=== PATIENT | male | born 1965 | race Hispanic/Latino ===

== ENCOUNTER 2017-12-25 09:20 | Observation (INO) | payer OTHER ==
--- OUTSIDE RECORDS SUMMARY | 2017-12-25 09:22 | XMS REPORT | Clinical Summary ---
:1965 Author Organization [facility] Address [address] [place] [id number] Care Team Providers Name Role Phone Eduardo Knutson MD Primary Care Provider Allergies Active Allergy Reactions Severity Noted Date Comments Morphine Other (See Comments) 02/27/2016 MORPHINE - BREAK OUT IN BLOTCHES Current Medications Prescription Sig. Disp. Refills Start Date End Date Status linagliptin (TRADJENTA) Take 5 mg by mouth Active 5 mg tablet daily. INSULIN DEGLUDEC Inject 110 Units Active (TRESIBA FLEXTOUCH U-200 under the skin SUBQ) daily. HYDROcodone-acetaminophe Take 1 tablet by Active n (NORCO) 7.5-325 mg per mouth every 8 tablet (eight) hours as needed for moderate pain. gabapentin (NEURONTIN) Take 300 mg by mouth Active 300 MG capsule 2 (two) times a day. furosemide (LASIX) 40 MG Take 40 mg by mouth Active tablet 2 (two) times a day. LORAZepam (ATIVAN) 2 MG Take 5 mg by mouth Active tablet daily. lisinopril Take 40 mg by mouth Active (PRINIVIL,ZESTRIL) 40 MG daily. tablet dextroamphetamine-amphet Take 30 mg by mouth Active amine (ADDERALL) 30 mg daily. tablet triamcinolone (KENALOG) Apply 1 application Active 0.1 % cream topically 2 (two) times a day. ondansetron (ZOFRAN) 8 Take 8 mg by mouth 2 Active MG tablet (two) times a day. diphenoxylate-atropine Take 1 tablet by Active (LOMOTIL) 2.5-0.025 mg mouth 2 (two) times per tablet a day. pentoxifylline (TRENTal) Take 400 mg by mouth Active 400 mg CR tablet 2 (two) times a day. betamethasone Apply 1 application Active dipropionate (DIPROLENE) topically 2 (two) 0.05 % cream times a day. citalopram (CeleXA) 20 Take 20 mg by mouth Active MG tablet daily. ketoconazole (NIZORAL) 2 Apply 1 application Active % shampoo topically 2 (two) times a week. Apply to damp skin, lather, leave on 5 minutes, and rinse omeprazole (PriLOSEC) 20 Take 20 mg by mouth Active MG capsule daily. metoprolol tartrate Take 50 mg by mouth Active (LOPRESSOR) 50 MG tablet 2 (two) times a day. Active Problems Not on file Social History Tobacco Use Types Packs/Day Years Used Date Never Smoker Smokeless Tobacco: Never Used Alcohol Use Drinks/Week oz/Week Comments No Sex Assigned at Date Recorded Not on file Last Filed Vital Signs Not on file Plan of Treatment Health Maintenance Due Date Last Done Comments COLONOSCOPY 2013 INFLUENZA VACCINE 04/15/2018 Implants Implanted Type Area Pattern Duplicator Device Expiration Model / Identifier Date Serial / Lot Clip Ligtng Weck Hemoclip Plus W/ Tape Ti Med - [id number] Medical N/A: N/A TELEFLEX MEDICAL [id number] / Implanted: 02/28/2016 (Quantity not on file) Clips for / Internal Use Clip Ligtng Weck Hemoclip Plus W/ Tape Ti Sm - [id number] Medical N/A: N/A WECK CLOSURE [id number] / Implanted: 02/28/2016 (Quantity not on file) Clips for SYSTEMS / Internal Use Results Not on fileafter 12/24/2016 Insurance Payer Benefit Plan / Group Subscriber ID Type Phone Address MEDICARE MEDICARE PART A AND B xxxxxxxxxx Medicare [place], [place] [address]
[2017-12-25] MEDS ORDERED: NITROGLYCERIN 0.4 MG/TAB SL ONE (10:05)
[2017-12-25] MEDS ORDERED: ASPIRIN 81 MG CHEWABLE TABLET ONE (10:05)
[2017-12-25 10:12] LABS: Absolute Lymphocytes (CBC) 1.7 K/uL (0.7-4.9); Absolute Monocytes 0.7 K/uL (0.1-1.3); Absolute Neutrophil 5.5 K/uL (1.8-8.0); Basophils % 0.5 % (0-1.3); Eosinophils % 6.3 % (0-4.4); Hematocrit 29.6 % (39.6-49.0); MCH 29.8 pg (27.0-35.0); Monocytes % 7.9 % (3.3-12.3); RBC Red Blood Cell Count 3.36 M/uL (4.33-5.43)
[2017-12-25 10:17] LABS: Protime INR 1.09
--- NOTE | 2017-12-25 10:19 | RAD REPORT ---
EXAM DESCRIPTION: [facility] Single View12/25/2017 9:46 am CLINICAL HISTORY: Shortness of breath COMPARISON: August 2017 FINDINGS: Moderate bilateral pulmonary opacities are present. There probably are small to moderate b ilateral pleural effusions. The heart is enlarged IMPRESSION: CHF
[2017-12-25 10:28] LABS: Potassium 3.9 mEq/L (3.6-5.0)
[2017-12-25 10:34] LABS: Albumin 3.4 g/dL (3.2-5.5); Bilirubin Direct 0.1 mg/dL (0-0.2); Bilirubin Total 0.7 mg/dL (0.3-1.2); Magnesium 2.2 mg/dL (1.8-2.5); Protein, Total 7.4 g/dL (6.0-8.3)
[2017-12-25] MEDS ORDERED: NA CHLORIDE 0.9% 0 ML IV ONE (10:35)
--- NOTE | 2017-12-25 11:31 | EDPHYS ---
Physician Documentation [facility] Name: Ari Izquierdo Age: 52 yrs Sex: Male : 1965 Arrival Date: 12/25/2017 Time: 09:24 Bed 18 Private MD: ED Physician Mukesh Cooper HPI: 12/25 10:15 This 52 yrs old Male presents to ER via EMS with complaints of Lethargy. wa 10:15 The patient presents with decreased mental status, decreased responsiveness, lethargy. wa Onset: The symptoms/episode began/occurred today, h/o ESRD. due for dialysis today. c/o SOB. Possible causes: unknown. Associated signs and symptoms: Pertinent positives: shortness of breath, Pertinent negatives: abdominal pain, blurred vision, chest pain, combativeness, diarrhea, headache, vomiting. Current symptoms: In the emergency department the patient's symptoms are unchanged from the initial presentation. Patient's baseline: Neuro: alert and fully oriented, Motor: no deficits, Ambulation: walks without assistance. The patient has experienced similar episodes in the past, a few times. The patient has not recently seen a physician. Historical: - Allergies: 09:29 Morphine; ss - PMHx: 09:29 Anemia; CHF; Depression; Diabetes - IDDM; ESRD; Hypertension; psoriasis; TIA; ss - Immunization history:: Adult Immunizations up to date. - Social history:: Smoking status: Patient/guardian denies using tobacco. - Family history:: not pertinent. - Hospitalizations: : No recent hospitalization is reported. ROS: 10:19 Constitutional: Negative for fever, chills, and weight loss, Eyes: Negative for injury, wa pain, redness, and discharge, ENT: Negative for injury, pain, and discharge, Neck: Negative for injury, pain, and swelling, Cardiovascular: Negative for chest pain, palpitations, and edema, Abdomen/GI: Negative for abdominal pain, nausea, vomiting, diarrhea, and constipation, Back: Negative for injury and pain, : Negative for injury, bleeding, discharge, and swelling, MS/Extremity: Negative for injury and deformity, Skin: Negative for injury, rash, and discoloration. 10:19 Respiratory: Positive for shortness of breath, at rest. Negative for cough, hemoptysis, wheezing. 10:19 Neuro: Positive for altered mental status, lethargy and decreased response. 10:19 All other systems are negative. Exam: 10:20 Head/Face: Normocephalic, atraumatic. wa 10:20 Eyes: Pupils equal round and reactive to light, extra-ocular motions intact. Lids and lashes normal. Conjunctiva and sclera are non-icteric and not injected. Cornea within normal limits. Periorbital areas with no swelling, redness, or edema. ENT: Nares patent. No nasal discharge, no septal abnormalities noted. Tympanic membranes are normal and external auditory canals are clear. Oropharynx with no redness, swelling, or masses, exudates, or evidence of obstruction, uvula midline. Mucous membranes moist. Neck: Trachea midline, no thyromegaly or masses palpated, and no cervical lymphadenopathy. Supple, full range of motion without nuchal rigidity, or vertebral point tenderness. No Meningismus. Cardiovascular: Regular rate and rhythm with a normal S1 and S2. No gallops, murmurs, or rubs. Normal PMI, no JVD. No pulse deficits. Abdomen/GI: Soft, non-tender, with normal bowel sounds. No distension or tympany. No guarding or rebound. No evidence of tenderness throughout. Back: No spinal tenderness. No costovertebral tenderness. Full range of motion. Skin: Warm, dry with normal turgor. Normal color with no rashes, no lesions, and no evidence of cellulitis. MS/ Extremity: Pulses equal, no cyanosis. Neurovascular intact. Full, normal range of motion. 10:20 Constitutional: The patient appears in no acute distress, somnolent but appropriate answers when questioned 10:20 Respiratory: the patient does not display signs of respiratory distress, Respirations: normal, Breath sounds: diffuse rhonchi, Respiratory rate: nml 10:20 Neuro: somnolent. answers questions appropriately. weak but moves all extremities bilaterally. Vital Signs: 09:29 BP 192 / 78; Pulse 66; Resp 19; Temp 98.9(O); Pulse Ox 84% on R/A; Weight 77.11 kg; ss Height 5 ft. 7 in. (170.18 cm); Pain 0/10; 09:30 Pulse Ox 98% on 2 lpm NC; ss 10:30 BP 194 / 62; Pulse 62; Resp 14; Pulse Ox 98% on 2 lpm NC; Pain 0/10; ss 10:42 BP 168 / 60; Pulse 63; Resp 16; Pain 0/10; ss 11:05 BP 204 / 69; Pulse 62; Resp 16; Pulse Ox 98% on R/A; ag 11:37 BP 174 / 74; Pulse 61; ss 12:40 BP 185 / 67; Pulse 61; Resp 18; Pulse Ox 97% on 2 lpm NC; Pain 0/10; ss 12:40 BP 172 / 64; Pulse 63; ss 09:29 Body Mass Index 26.63 (77.11 kg, 170.18 cm) ss MDM: 09:30 Patient medically screened. mo 10:22 Differential Diagnosis: CVA, electrolyte abnormality, hypoglycemia, overdose, sepsis, wa CHF. 11:27 Data reviewed: vital signs, nurses notes, lab test result(s), EKG, radiologic studies. wa Special discussion: pt on ativan and norco. suspect somnolence may be due to over-medication. unable to check UDS as pt does not make urine. BP improved. SOB improved with pre-load reduction secondary to nitro admin. kirk admit for emergent dialysis. K within nml limits at this time. 11:30 Test interpretation: by ED physician or midlevel provider: EKG: HR 61. nml axis. wa diffuse T wave flattening. diffuse ST-T changes. elevated BUN/Cr. anemia. mild troponin elevation. elevated BNP. CXR: CHF. . Physician consultation: Jodi Crews MD. 12/25 09:36 Order name: BMP; Complete Time: 10:52 12/25 09:36 Order name: BNP; Complete Time: 10:52 12/25 09:36 Order name: CBC with Diff; Complete Time: 10:52 12/25 09:36 Order name: CPK; Complete Time: 10:53 12/25 09:36 Order name: Hepatic Function; Complete Time: 10:53 12/25 09:36 Order name: Magnesium; Complete Time: 10:53 12/25 09:36 Order name: XRAY CXR (1 view); Complete Time: 10:22 12/25 09:36 Order name: PT-INR; Complete Time: 10:53 12/25 09:36 Order name: Troponin (emerg Dept Use Only); Complete Time: 10:53 12/25 09:36 Order name: EKG; Complete Time: 09:37 mo 12/25 09:36 Order name: Cardiac monitoring; Complete Time: 10:41 mo 12/25 09:36 Order name: EKG - Nurse/Tech; Complete Time: 11:33 12/25 09:36 Order name: IV Saline Lock; Complete Time: 10:41 mo 12/25 09:36 Order name: Labs collected and sent; Complete Time: 10:41 mo 12/25 09:36 Order name: O2 Per Protocol; Complete Time: 10:41 mo 12/25 09:36 Order name: O2 Sat Monitoring; Complete Time: 10:42 mo Administered Medications: 10:39 Drug: Aspirin Chewable Tablet 324 mg Route: PO; ss 11:00 Follow up: Response: No adverse reaction ss 10:40 Drug: Nitroglycerin 0.4 mg Route: Sublingual; ss 11:07 Drug: Nitroglycerin 0.4 mg Route: Sublingual; ss 11:36 Drug: Nitroglycerin 0.4 mg Route: Sublingual; ss 12:00 Follow up: BP decreased minimally for short period of time. dr. Cooper notified. ss 12:52 Drug: Nitroglycerin 0.4 mg Route: Sublingual; ss 13:05 Follow up: blood pressure minimally decreased, Dr. Cooper notified. No further ss intervensions. Dr. Cooper states pt okay to go upstiars, "needs dialysis" Disposition: 12/25/17 11:30 Hospitalization ordered by Jodi Crews for Observation. Preliminary diagnosis are Acute Altered Mental Status, CHF exacerbation, Anemia. - Bed requested for Telemetry/MedSurg (observation). - Status is Observation. ss - Condition is Stable. - Problem is an acute exacerbation. - Symptoms have improved. UTI on Admission? No Signatures: Dispatcher [employer] EDMS Stephany Du RN RN Peggy Lock RN RN Mukesh Cooper MD MD mo Corrections: (The following items were deleted from the chart) 11:33 09:36 Urine Dipstick-Ancillary ordered. mo ss
--- NOTE | 2017-12-25 11:31 | ER ---
Nurse's Notes [facility] Name: Ari Izquierdo Age: 52 yrs Sex: Male : 1965 Arrival Date: 12/25/2017 Time: 09:24 Bed 18 Private MD: Diagnosis: Acute Altered Mental Status;CHF exacerbation;Anemia Presentation: 12/25 09:25 Presenting complaint: EMS states: [facility] staff called EMS because patient is ss lethargic. Pt is awake, but complains of shortness of breath. [facility] reports that patient dialysis session is scheduled for now. Transition of care: patient was not received from another setting of care. Onset of symptoms was December 25, 2017. Care prior to arrival: None. :25 Method Of Arrival: EMS: [facility] ss 09:25 Acuity: RACHANA 2 ss Historical: - Allergies: : Morphine; ss - PMHx: :29 Anemia; CHF; Depression; Diabetes - IDDM; ESRD; Hypertension; psoriasis; TIA; ss - Immunization history:: Adult Immunizations up to date. - Social history:: Smoking status: Patient/guardian denies using tobacco. - Family history:: not pertinent. - Hospitalizations: : No recent hospitalization is reported. Screenin:45 Abuse screen: Denies threats or abuse. Denies injuries from another. Nutritional ss screening: No deficits noted. Tuberculosis screening: Never had TB. Fall Risk Fall in past 12 months (25 points). Secondary diagnosis (15 points) impaired mobility, IV access (20 points). Ambulatory Aid- None/Bed Rest/Nurse Assist (0 pts). Gait- Normal/Bed Rest/Wheelchair (0 pts) Mental Status- Overestimates/Forgets Limitations (15 pts.). Assessment: 09:24 General: Appears comfortable, Behavior is cooperative, drowsy, quiet, Reports fatigue ss for for unknown period of time. [facility] reports since today. Is scheduled to have HD today at this time. . Denies fever, feeling ill, chills. Pain: Denies pain. Neuro: Level of Consciousness is awake, obeys commands, pt is drowsy, but awake and answers questions appropriately. Cardiovascular: Denies chest pain, Heart tones S1 S2 present Capillary refill is sluggish in bilateral fingers Patient's skin is warm and dry. Chest pain is denied. Respiratory: Breath sounds are diminished in left posterior lower lobe and right posterior lower lobe. Respiratory: Reports shortness of breath at rest on exertion Airway is patent Trachea midline Respiratory effort is even, unlabored, Respiratory pattern is regular, symmetrical, Denies cough, pain with respiration, pain with cough, pain with movement. GI: Patient currently denies abdominal pain, diarrhea, nausea, vomiting. : Reports does not produce urine any longer. EENT: Oral mucosa is dry. Derm: Skin with poor turgor Skin is pink, warm \\T\\ dry. normal, redness noted to R hand. [facility] told EMS that this has been normal since patient had dialysis fistula surgery. Musculoskeletal: Amputation of Other: bilateral toes. 10:45 Reassessment: Pt is resting at this time, eyes closed, respirations even and unlabored. 11:30 Reassessment: Patient appears in no apparent distress at this time. repositioned in bed ss with assistance from ED staff. Asked patient if he needs to be cleaned of incontinence, reports no. 13:07 Reassessment: attempted to call report to fourth floor, Crystal nurse will call back in dm5 ten minutes. Charge nurse unavailable to take report at this time. Vital Signs: 09:29 BP 192 / 78; Pulse 66; Resp 19; Temp 98.9(O); Pulse Ox 84% on R/A; Weight 77.11 kg; ss Height 5 ft. 7 in. (170.18 cm); Pain 0/10; 09:30 Pulse Ox 98% on 2 lpm NC; ss 10:30 BP 194 / 62; Pulse 62; Resp 14; Pulse Ox 98% on 2 lpm NC; Pain 0/10; ss 10:42 BP 168 / 60; Pulse 63; Resp 16; Pain 0/10; ss 11:05 BP 204 / 69; Pulse 62; Resp 16; Pulse Ox 98% on R/A; ag 11:37 BP 174 / 74; Pulse 61; ss 12:40 BP 185 / 67; Pulse 61; Resp 18; Pulse Ox 97% on 2 lpm NC; Pain 0/10; ss 12:40 BP 172 / 64; Pulse 63; ss 09:29 Body Mass Index 26.63 (77.11 kg, 170.18 cm) ED Course: 09:24 Patient arrived in ED. ss 09:25 Stephany Du, SYL is Primary Nurse. 09:28 Triage completed. ss 09:29 Arm band placed on right wrist. 09:30 Mukesh Cooper MD is Attending Physician. wa 09:44 X-ray completed. Portable x-ray completed in exam room. [email or web address] 09:45 XRAY CXR (1 view) In Process Unspecified. EDMS 10:00 Inserted saline lock: 22 gauge in left wrist, using aseptic technique. 10:39 Notified ED physician of a critical lab result(s). Creatinine 6.07. hb 10:45 Patient has correct armband on for positive identification. Bed in low position. Call ss light in reach. 11:26 EKG done, by ED staff, reviewed by Mukesh Cooper MD. [facility] 11:29 Jodi Crews MD is Hospitalizing Provider. wi 13:07 No provider procedures requiring assistance completed. Patient admitted, IV remains in dm5 place. Administered Medications: 10:39 Drug: Aspirin Chewable Tablet 324 mg Route: PO; 11:00 Follow up: Response: No adverse reaction 10:40 Drug: Nitroglycerin 0.4 mg Route: Sublingual; 11:07 Drug: Nitroglycerin 0.4 mg Route: Sublingual; ss 11:36 Drug: Nitroglycerin 0.4 mg Route: Sublingual; 12:00 Follow up: BP decreased minimally for short period of time. dr. Cooper notified. 12:52 Drug: Nitroglycerin 0.4 mg Route: Sublingual; 13:05 Follow up: blood pressure minimally decreased, Dr. Cooper notified. No further ss intervensions. Dr. Cooper states pt okay to go upstiars, "needs dialysis" Intake: Outcome: 11:30 Decision to Hospitalize by Provider. wa 13:07 Condition: stable dm5 13:07 Instructed on the need for admit. 13:28 Admitted to Tele accompanied by tech, via stretcher, room 420, report given to joseluis sage with oxygen, with chart. 13:30 Patient left the ED. ss Signatures: Dispatcher [employer] EDTX Arabella Carrera, SYL STREETER dm5 Fanny Conley jr1 Stephany Du RN RN Isadora Herndon Heather, RN RN Corry Zepeda [facility] Mukesh Cooper MD MD wa Corrections: (The following items were deleted from the chart) 09: 09:25 Acuity: RACHANA 3 ss ss 11:07 10:42 BP 194 / 62; Pulse 62bpm; Resp 14bpm; Pulse Ox 98% 2 lpm Nasal Cannula; Pain ss 0/10; ss 15:59 15:59 Response: No adverse reaction ss ss
[2017-12-25] MEDS ORDERED: ONDANSETRON 4 MG (ODT) TAB PO PRN (11:51)
--- NOTE | 2017-12-25 15:30 | EKG ---
Test Date: 2017-12-25 Test Time: 10:55:07 Events Traffic Controller: COLIN MEASUREMENT RESULTS: Intervals: Rate: 61 NV: 132 QRSD: 86 QT: 466 QTc: 469 [place]: P: 19 NV: 132 QRS: 9 T: 87 INTERPRETIVE STATEMENTS: Normal sinus rhythm T wave abnormality, consider lateral ischemia Prolonged QT Abnormal ECG Compared to ECG 09/13/2017 04:00:45 T-wave abnormality now present Possible ischemia now present Prolonged QT interval now present Sinus bradycardia no longer present Ventricular premature complex(es) no longer present Myocardial infarct finding no longer present Electronically Signed On 12-25-17 15:28:54 CDT by Bakari Sahu
[2017-12-25] MEDS ORDERED: D50W 25 GM/50 ML SYRINGE IV PRN (16:07)
[2017-12-25] MEDS ORDERED: GLUCAGON 1 MG/VIAL IM PRN (16:07)
[2017-12-25] MEDS: INSULIN -REGULAR HUMAN 50 UNIT/0.5 ML ML SQ SCH (16:30)
[2017-12-25] MEDS: SEVELAMER CARBONATE 800 MG TABLET PO SCH (16:44)
[2017-12-25] MEDS: cloNIDine HCl 0.1 MG TAB PO SCH ×2 (16:44→22:07)
[2017-12-25] MEDS: FUROSEMIDE 40 MG/4 ML VIAL IV SCH (16:45)
--- NOTE | 2017-12-25 17:12 | P.HP ---
Certification for Inpatient Patient admitted to: Observation With expected LOS: >2 Midnights Patient will require the following post-hospital care: None Practitioner: I am a practitioner with admitting privileges, knowledge of patient current condition, hospital course, and medical plan of care. Services: Services provided to patient in accordance with Admission requirements found in Title 42 Section 412.3 of the Code of Federal Regulations Patient History Date of Service: 12/25/17 Primary Care Provider: None Reason for admission: Lethargic History of Present Illness: 55-year-old male with significant past medical history of hypertension, diabetes , end-stage renal disease on hemodialysis Friday who presented to the hospital from the halfway. Patient nurse at the halfway stated that patient was found to be more lethargic and somnolent when they got him up to go to dialysis. Patient has had some pain medications this morning after which she became lethargic in the progressively worse and thus EMS was called to transfer the patient to the ER. Once in the ER patient was more alert and oriented and was able to answer question. Patient denied having any fever chills nausea vomiting chest pain or shortness of breath at this time. Patient does not recall the episode of being lethargic at the halfway. Patient does however states he has been feeling weak for past couple of days at the halfway. Allergies morphine Allergy (Mild, Verified 09/11/17 15:03) Itching/Hives/Rash Home Medications: Metoprolol Tartrate [Lopressor] 100 mg PO BID 03/27/16 Clonidine HCl [Catapres*] 0.1 mg PO TID 09/11/17 Furosemide [Lasix*] 80 mg PO DAILY 09/11/17 Hydrocodone 7.5/APAP 325 [Haskell 7.5/325 mg*] 1 tab PO Q6HP PRN 09/11/17 Lorazepam [Ativan*] 0.5 mg PO BEDTIME 09/11/17 Pentoxifylline 400 mg PO DAILY 09/11/17 Sevelamer Carbonate [Renvela*] 800 mg PO TID 09/11/17 Acetaminophen 500 mg PO Q4HP PRN 12/25/17 Albuterol Sulfate [Albuterol Sulfate 0.083% Neb Soln] 1 vial NEB Q6HP PRN Amlodipine [Norvasc*] 1 tab PO DAILY 12/25/17 Atorvastatin Calcium [Lipitor*] 1 tab PO BEDTIME 12/25/17 Benzonatate [Tessalon Perle*] 2 cap PO Q8HP PRN 12/25/17 Citalopram [Celexa*] 1 tab PO DAILY 12/25/17 Dextroamphetamine/Amphetamine [Adderall 30 mg Tablet] 30 mg PO DAILY 12/25/17 Diphenox/Atropine [Lomotil*] 1 tab PO Q8HP PRN 12/25/17 Docusate Sodium 1 cap PO BID 12/25/17 Hydrocodone 7.5/APAP 325 [Haskell 7.5/325 mg*] 1 tab PO BID 12/25/17 Insulin Aspart [Novolog Flexpen] 1 unit SQ DAILY 12/25/17 Ipratropium/Albuterol Sulfate [Iprat-Albut 0.5-3(2.5) mg/3 ml] 1 vial NEB Q6HP PRN 12/25/17 Lorazepam [Ativan*] 1 mg PO T,,S 12/25/17 Mag Hydroxide 8% [Milk Of Magnesia*] 30 ml PO DAILY PRN 12/25/17 Melatonin/Pyridoxine HCl (B6) [Melatonin 3 mg Tablet] 6 mg PO BEDTIME 12/25/17 Promethazine HCl 25 mg PO Q6HP PRN 12/25/17 Ramipril [Altace] 10 mg PO BEDTIME 12/25/17 - Past Medical/Surgical History Has patient received pneumonia vaccine in the past: Yes Diabetic: Yes -: Hypertension -: Psoriasis -: Depression -: Diabetes mellitus type 2 -: Anxiety -: History of osteomyelitis with amputations -: End-stage renal disease, nephrology-Dr. Valdes -: Morbid obesity -: Multiple toe amputations -: Previous incision and drainage of multiple abscesses -: Cholecystectomy -: Tonsillectomy Psychosocial/ Personal History: The patient lives by himself. He is currently single. He has been trying to set up going and living in a halfway. - Family History Father -: Heart disease, Diabetes, Kidney disease Notes: of an [place] Mother -: Diabetes Notes: in a car accident - Social History Smoking Status: Never smoker Alcohol use: No CD- Drugs: No Caffeine use: Yes Place [facility]idence[facility] Review of Systems General: As per HPI Physical Examination - Vital Signs Temperature: 97.6 F Blood Pressure: 220/82 Pulse: 68 Respirations: 18 Pulse Ox (%): 98 - Physical Exam General: Alert, In no apparent distress, Other (appeared to be Lethargic. But AAOx3) HEENT: Atraumatic Neck: Supple Respiratory: Normal air movement, Crackles/rales Cardiovascular: Regular rate/rhythm, Normal S1 S2 Gastrointestinal: Normal bowel sounds, Soft and benign, Non-distended, No tenderness Musculoskeletal: No tenderness Integumentary: No rashes Neurological: Normal speech, Normal tone, Abnormal strength Lymphatics: No axilla or inguinal lymphadenopathy - Studies Laboratory Data (last 24 hrs) 12/25/17 10:00: PT 12.9 H, INR 1.09 12/25/17 10:00: WBC 8.4, Hgb 10.0 L, Hct 29.6 L, Plt Count 180 12/25/17 10:00: B-Natriuretic Peptide 1572 H 12/25/17 10:00: Sodium 136, Potassium 3.9, BUN 41 H, Creatinine 6.07 H*, Glucose 104, Magnesium 2.2, Total Bilirubin 0.7, AST 21, ALT 14, Alkaline Phosphatase 78 Assessment and Plan - Problems (Diagnosis) (1) Lethargic Current Visit: Yes Status: Acute Plan: Most likely 2.2 to Azotemia vs Narcotics overdose. Now more alert and oriented. -IV lasix BID -Pt scheduled for HD today -Nephrology consulted. Awaiting Reccs -Lab work and Xray with Volume overload. -Held Haskell and other narcotics at this time. 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 Diabetes mellitus complication status: without complication Qualified Code(s): E11.9 - Type 2 diabetes mellitus without complications; Z79.4 - correction (current) use of insulin; Z79.4 - intermodal truck driver ( current) use of insulin; Z79.4 - intermodal truck driver (current) use of insulin; Z79.4 - intermodal truck driver (current) use of insulin (4) ESRD (end stage renal disease) Onset Date: 09/12/17 Current Visit: No Status: Chronic Plan: On HD and friday -Will restart (5) Hypertension Onset Date: 09/12/17 Current Visit: No Status: Chronic Plan: Restart home medication Qualifiers: Hypertension type: essential hypertension Discharge Plan: [facility] Plan to discharge in: 24 Hours - Advance Directives Does patient have a Living Will: No Does patient have a Durable POA for Healthcare: No - Code Status/Comfort Care Code Status Assessed: Yes Critical Care: No
[2017-12-25] MEDS ORDERED: MANNITOL 25% 12.5 GM/50 ML VIAL IV PRN (18:54)
[2017-12-25] MEDS ORDERED: NA CHLORIDE 0.9% 1,000 ML IV PRN (18:54)
[2017-12-25] MEDS ORDERED: EPOETIN ALFA 10,000 UNIT/ML VIAL IV SCH (19:00)
[2017-12-25] MEDS ORDERED: ALBUMIN HUMAN 25% 50 ML IV SCH (19:00)
[2017-12-25] MEDS ORDERED: HOME MED 1 EA UNK (Metoprolol Tartrate [Lopressor] 100 MG) PO SCH (21:00)
--- NOTE | 2017-12-25 21:39 | P.CNS ---
Date of Consult: 12/25/17 Reason for Consult: ESRD Requesting Physician: Jodi Crews Primary Care Provider: None Chief Complaint: Lethargic History of Present Illness: 55-year-old male with significant past medical history of hypertension, diabetes , end-stage renal disease on hemodialysis Friday who presented to the hospital from the prison. Patient nurse at the prison stated that patient was found to be more lethargic and somnolent when they got him up to go to dialysis. Patient has had some pain medications this morning after which she became lethargic in the progressively worse and thus EMS was called to transfer the patient to the ER. Once in the ER patient was more alert and oriented and was able to answer question. Patient denied having any fever chills nausea vomiting chest pain or shortness of breath at this time. Patient does not recall the episode of being lethargic at the prison. Patient does however states he has been feeling weak for past couple of days at the prison. 10:15 This 52 yrs old Male presents to ER via EMS with complaints of Lethargy. wa 10:15 The patient presents with decreased mental status, decreased responsiveness, lethargy. wa Onset: The symptoms/episode began/occurred today, h/o ESRD. due for dialysis today. c/o SOB. Possible causes: unknown. Associated signs and symptoms: Pertinent positives: shortness of breath, Pertinent negatives: abdominal pain, blurred vision, chest pain, combativeness, diarrhea, headache, vomiting. Current symptoms: In the emergency department the patient's symptoms are unchanged from the initial presentation. Patient's baseline: Neuro: alert and fully oriented, Motor: no deficits, Ambulation: walks without assistance. The patient has experienced similar episodes in the past, a few times. The patient has not recently seen a physician. Allergies morphine Allergy (Mild, Verified 09/11/17 15:03) Itching/Hives/Rash Home medications list reviewed: Yes Home Medications: Metoprolol Tartrate [Lopressor] 100 mg PO BID 03/27/16 Clonidine HCl [Catapres*] 0.1 mg PO TID 09/11/17 Furosemide [Lasix*] 80 mg PO DAILY 09/11/17 Hydrocodone 7.5/APAP 325 [[place] 7.5/325 mg*] 1 tab PO Q6HP PRN 09/11/17 Lorazepam [Ativan*] 0.5 mg PO BEDTIME 09/11/17 Pentoxifylline 400 mg PO DAILY 09/11/17 Sevelamer Carbonate [Renvela*] 800 mg PO TID 09/11/17 Acetaminophen 500 mg PO Q4HP PRN 12/25/17 Albuterol Sulfate [Albuterol Sulfate 0.083% Neb Soln] 1 vial NEB Q6HP PRN Amlodipine [Norvasc*] 1 tab PO DAILY 12/25/17 Atorvastatin Calcium [Lipitor*] 1 tab PO BEDTIME 12/25/17 Benzonatate [Tessalon Perle*] 2 cap PO Q8HP PRN 12/25/17 Citalopram [Celexa*] 1 tab PO DAILY 12/25/17 Dextroamphetamine/Amphetamine [Adderall 30 mg Tablet] 30 mg PO DAILY 12/25/17 Diphenox/Atropine [Lomotil*] 1 tab PO Q8HP PRN 12/25/17 Docusate Sodium 1 cap PO BID 12/25/17 Hydrocodone 7.5/APAP 325 [[place] 7.5/325 mg*] 1 tab PO BID 12/25/17 Insulin Aspart [Novolog Flexpen] 1 unit SQ DAILY 12/25/17 Ipratropium/Albuterol Sulfate [Iprat-Albut 0.5-3(2.5) mg/3 ml] 1 vial NEB Q6HP PRN 12/25/17 Lorazepam [Ativan*] 1 mg PO T,TH,S 12/25/17 Mag Hydroxide 8% [Milk Of Magnesia*] 30 ml PO DAILY PRN 12/25/17 Melatonin/Pyridoxine HCl (B6) [Melatonin 3 mg Tablet] 6 mg PO BEDTIME 12/25/17 Promethazine HCl 25 mg PO Q6HP PRN 12/25/17 Ramipril [Altace] 10 mg PO BEDTIME 12/25/17 - Past Medical/Surgical History Diabetic: Yes -: Hypertension -: Psoriasis -: Depression -: Diabetes mellitus type 2 -: Anxiety -: History of osteomyelitis with amputations -: End-stage renal disease, nephrology-Dr. Valdes -: Morbid obesity -: Multiple toe amputations -: Previous incision and drainage of multiple abscesses -: Cholecystectomy -: Tonsillectomy Psychosocial/ Personal History: The patient lives by himself. He is currently single. He has been trying to set up going and living in a prison. - Family History Father Medical History: Heart disease, Diabetes, Kidney disease Notes: of an [place] Mother Medical History: Diabetes Notes: in a car accident - Social History Smoking Status: Unknown if ever smoked Alcohol use: No CD- Drugs: No Caffeine use: Yes Place of Residence: [facility] Review of Systems 10-point ROS is otherwise unremarkable General: Weakness, Malaise Respiratory: SOB with Excertion Cardiovascular: Edema Physical Examination Temp Pulse Resp BP Pulse Ox 97.6 F 66 18 123/69 98 12/25/17 17:15 12/25/17 18:00 12/25/17 17:15 12/25/17 18:00 12/25/17 17:15 General: In no apparent distress, Oriented x3, Cooperative HEENT: Atraumatic Neck: Supple Respiratory: Crackles/rales Cardiovascular: Regular rate/rhythm, Edema Gastrointestinal: Hypoactive, Soft and benign, Non-distended Musculoskeletal: No clubbing, No contractures Integumentary: No cyanosis, Rash(es) Neurological: Normal speech Laboratory Data (last 24 hrs) 12/25/17 10:00: PT 12.9 H, INR 1.09 12/25/17 10:00: WBC 8.4, Hgb 10.0 L, Hct 29.6 L, Plt Count 180 12/25/17 10:00: B-Natriuretic Peptide 1572 H 12/25/17 10:00: Sodium 136, Potassium 3.9, BUN 41 H, Creatinine 6.07 H*, Glucose 104, Magnesium 2.2, Total Bilirubin 0.7, AST 21, ALT 14, Alkaline Phosphatase 78 Imagings Data: EXAM DESCRIPTION: [facility] Single View12/25/2017 9:46 am CLINICAL HISTORY: Shortness of breath COMPARISON: August 2017 FINDINGS: Moderate bilateral pulmonary opacities are present. There probably are small to moderate bilateral pleural effusions. The heart is enlarged IMPRESSION: CHF Conclusions/Impression: A/ ESRD on HD. A/C Diastolic CHF. HTN with CKD. Anemia in CKD. GENNARO/ Secondary HyperPTH. Psoriasis. P/ Continue current POC and Medications. Arrange for acute HD. Restart home medications. Give Epo. Start Vitamin D and binders. AM labs. Daily weight. Continue current POC and Medications.
[2017-12-25] MEDS: METOPROLOL TAR 50 MG TAB PO SCH (22:08)
[2017-12-26] MEDS: INSULIN -REGULAR HUMAN 50 UNIT/0.5 ML ML SQ SCH ×6 (01:09→21:25)
[2017-12-26 05:45] VITALS: BMI 25.5
[2017-12-26 06:18] LABS: Absolute Lymphocytes (CBC) 1.5 K/uL (0.7-4.9); Absolute Monocytes 0.7 K/uL (0.1-1.3); Absolute Neutrophil 5.7 K/uL (1.8-8.0); Basophils % 0.5 % (0-1.3); Eosinophils % 6.9 % (0-4.4); Hematocrit 31.5 % (39.6-49.0); Lymphocytes % 17.8 % (15.3-44.8); MCV 88.5 fL (80-100); MPV 8.2 fL (7.6-11.3); Monocytes % 8.2 % (3.3-12.3); RBC Red Blood Cell Count 3.56 M/uL (4.33-5.43)
[2017-12-26] MEDS: ACETAMINOPHEN 500 MG TAB PO PRN ×2 (06:44→21:26)
[2017-12-26 07:10] LABS: Albumin 3.1 g/dL (3.2-5.5); Bilirubin Total 0.3 mg/dL (0.3-1.2); Magnesium 2.1 mg/dL (1.8-2.5); Phosphorus 4.1 mg/dL (2.5-4.3); Potassium 4.3 mEq/L (3.6-5.0); Protein, Total 7.2 g/dL (6.0-8.3)
[2017-12-26] MEDS: SEVELAMER CARBONATE 800 MG TABLET PO SCH ×3 (08:33→17:37)
[2017-12-26] MEDS: PENTOXIFYLLINE ER 400 MG TAB PO SCH (08:34)
[2017-12-26] MEDS: cloNIDine HCl 0.1 MG TAB PO SCH ×3 (08:34→21:29)
[2017-12-26] MEDS: FUROSEMIDE 40 MG/4 ML VIAL IV SCH ×2 (08:35→17:37)
[2017-12-26] MEDS: METOPROLOL TAR 50 MG TAB PO SCH ×2 (08:47→21:27)
[2017-12-26] MEDS ORDERED: HYDRALAZINE HCL 20 MG/ML VIAL IV ONE (11:06)
[2017-12-26] MEDS ORDERED: ALBUTEROL 2.5 MG/3 ML NEB SOL NEB PRN ×2 (11:14→15:00)
[2017-12-26] MEDS ORDERED: ACETAMINOPHEN 500 MG TAB PO PRN (11:14)
[2017-12-26] MEDS ORDERED: BENZONATATE 100 MG CAP PO PRN (11:14)
[2017-12-26] MEDS ORDERED: LORAZEPAM 1 MG TABLET PO SCH (12:00)
[2017-12-26] MEDS ORDERED: MAGNESIUM HYDROXIDE 8% 30 ML PO PRN (12:23)
--- NOTE | 2017-12-26 13:01 | ECHO ---
HEIGHT: 5 ft 7 in WEIGHT: 163 lb 3.2 oz DATE OF STUDY: 12/26/[address]: Jodi Crews MD 2-DIMENSIONAL: YES M.MODE: YES DOPPLER: YES COLOR FLOW: YES TDS: NO PORTABLE: NO DEFINITY: NO BUBBLE STUDY: NO DIAGNOSIS: CONGESTIVE HEART FAILURE CARDIAC HISTORY: CATHERIZATION: NO SURGERY: NO PROSTHETIC VALVE: NO PACEMAKER: NO MEASUREMENTS (cm) DIASTOLIC (NORMALS) SYSTOLIC (NORMALS) IVSd 1.2 (0.6-1.2) LA Diam 3.9 (1.9-4.0) LVEF 50% LVIDd 5.4 (3.5-5.7) LVIDs 4.0 (2.0-3.5) %FS 26% LVPWd 1.3 (0.6-1.2) Ao Diam 3.3 (2.0-3.7) 2 DIMENSIONAL ASSESSMENT: RIGHT ATRIUM: NORMAL LEFT ATRIUM: NORMAL RIGHT VENTRICLE: NORMAL LEFT VENTRICLE: LEFT VENTRICULAR HYPERTROPHY TRICUSPID VALVE: NORMAL MITRAL VALVE: NORMAL PULMONIC VALVE: NORMAL AORTIC VALVE: NORMAL PERICARDIAL EFFUSION: NONE AORTIC ROOT: NORMAL LEFT VENTRICULAR WALL MOTION: DECREASED LEFT VENTRICULAR COMPLIANCE. DOPPLER/COLOR FLOW: MILD TRICUSPID REGURGITATION. NORMAL RIGHT VENTRICULAR SYSTOLIC PRESSURE. COMMENTS: MILD TRICUSPID REGURGITATION. NORMAL LEFT VENTRICULAR EJECTION FRACTION. LEFT VENTRICULAR HYPERTROPHY. DECREASED LEFT VENTRICULAR COMPLIANCE. NO EFFUSION. TECHNOLOGIST: Collin MACARIO
--- NOTE | 2017-12-26 13:38 | RAD REPORT ---
EXAM DESCRIPTION: CT - Thorax Wo Con CLINICAL HISTORY: Shortness of breath. COMPARISON: 12/25/2017 FINDINGS: Moderate to large bilateral pleural effusions are noted, slightly greater on the right. Co mpressive atelectasis is suspected in both lung bases. No pericardial fluid seen. No pneumothorax. No axillary, mediastinal or hilar adenopathy. No concerning bony finding. Cholecystectomy clips. All CT scans are performed using dose optimization technique as appropriate and may include automated exposure control or mA/KV adjustment according to patient size. IMPRESSION: Moderate to large bilateral pleural effusions, slightly greater on the right. Compressive atelectasis is present both lung bases.
--- NOTE | 2017-12-26 14:38 | P.CNS ---
Date of Consult: 12/26/17 Reason for Consult: Shortness of breath Primary Care Provider: None Chief Complaint: Shortness of breath History of Present Illness: Patient is 52 years of age has been complaining of progressive dyspnea for the past 3 months was seen by Cardiology a while ago patient has chronic renal failure on dialysis patient her altered mental status abnormal chest x-ray bilateral pleural effusions denies any fever chills cough sputum hemoptysis or chest pain Allergies morphine Allergy (Mild, Verified 09/11/17 15:03) Itching/Hives/Rash Home Medications: Metoprolol Tartrate [Lopressor] 100 mg PO BID 03/27/16 Clonidine HCl [Catapres*] 0.1 mg PO TID 09/11/17 Furosemide [Lasix*] 80 mg PO DAILY 09/11/17 Hydrocodone 7.5/APAP 325 [[place] 7.5/325 mg*] 1 tab PO Q6HP PRN 09/11/17 Lorazepam [Ativan*] 0.5 mg PO BEDTIME 09/11/17 Pentoxifylline 400 mg PO DAILY 09/11/17 Sevelamer Carbonate [Renvela*] 800 mg PO TID 09/11/17 Acetaminophen 500 mg PO Q4HP PRN 12/25/17 Albuterol Sulfate [Albuterol Sulfate 0.083% Neb Soln] 1 vial NEB Q6HP PRN Amlodipine [Norvasc*] 1 tab PO DAILY 12/25/17 Atorvastatin Calcium [Lipitor*] 1 tab PO BEDTIME 12/25/17 Benzonatate [Tessalon Perle*] 2 cap PO Q8HP PRN 12/25/17 Citalopram [Celexa*] 1 tab PO DAILY 12/25/17 Dextroamphetamine/Amphetamine [Adderall 30 mg Tablet] 30 mg PO DAILY 12/25/17 Diphenox/Atropine [Lomotil*] 1 tab PO Q8HP PRN 12/25/17 Docusate Sodium 1 cap PO BID 12/25/17 Hydrocodone 7.5/APAP 325 [[place] 7.5/325 mg*] 1 tab PO BID 12/25/17 Insulin Aspart [Novolog Flexpen] 1 unit SQ DAILY 12/25/17 Ipratropium/Albuterol Sulfate [Iprat-Albut 0.5-3(2.5) mg/3 ml] 1 vial NEB Q6HP PRN 12/25/17 Lorazepam [Ativan*] 1 mg PO T,TH,S 12/25/17 Mag Hydroxide 8% [Milk Of Magnesia*] 30 ml PO DAILY PRN 12/25/17 Melatonin/Pyridoxine HCl (B6) [Melatonin 3 mg Tablet] 6 mg PO BEDTIME 12/25/17 Promethazine HCl 25 mg PO Q6HP PRN 12/25/17 Ramipril [Altace] 10 mg PO BEDTIME 12/25/17 - Past Medical/Surgical History Diabetic: Yes -: Hypertension -: Psoriasis -: Depression -: Diabetes mellitus type 2 -: Anxiety -: History of osteomyelitis with amputations -: End-stage renal disease, nephrology-Dr. Valdes -: Morbid obesity -: Multiple toe amputations -: Previous incision and drainage of multiple abscesses -: Cholecystectomy -: Tonsillectomy Psychosocial/ Personal History: The patient lives by himself. He is currently single. He has been trying to set up going and living in a prison. - Family History Father Medical History: Heart disease, Diabetes, Kidney disease Notes: of an [place] Mother Medical History: Diabetes Notes: in a car accident - Social History Smoking Status: Unknown if ever smoked Alcohol use: No CD- Drugs: No Caffeine use: Yes Place of Residence: [facility] Review of Systems General: Weakness Respiratory: Shortness of Breath Cardiovascular: Edema Physical Examination Temp Pulse Resp BP Pulse Ox 97.8 F 66 18 212/86 H 99 12/26/17 11:22 12/26/17 11:22 12/26/17 11:22 12/26/17 11:22 12/26/17 11:22 General: Alert, Oriented x3 Neck: Supple Respiratory: Diminished, Crackles/rales (Bilateral crackles) Cardiovascular: Regular rate/rhythm, Edema (Bilateral edema) Musculoskeletal: Other (Right arm digits are swollen erythematous with an exam at this rash) - Problems (1) Dyspnea Onset Date: 09/05/17 Current Visit: No Status: Acute Plan: Patient is 52 years of age admitted with worsening dyspnea for the past 3 months he is on hemodialysis end-stage renal disease significant bilateral pleural effusions also had altered mental status doubt sepsis I have ordered ABGs he may well have underlying obstructive sleep apnea echo shows normal left ventricular function with decreased compliance Qualifiers: Dyspnea type: dyspnea on exertion Qualified Code(s): R06.09 - Other forms of dyspnea
[2017-12-26 16:07] LABS: Blood Gas Oxyhemoglobin 91.7 % (94-97); Blood O2 Saturation 95.3 % (92-98.5)
--- NOTE | 2017-12-26 17:01 | P.PN ---
Subjective Date of Service: 12/26/17 Primary Care Provider: None Chief Complaint: Shortness of breath Pt seen and examined at bedside. Chart reviewed. Currently C/o SOB. Had CT chest today. Consistent with BL Pleural Effusion. Pulmonology consulted. Review of Systems General: As per HPI Physical Examination - Vital Signs Temperature: 97.8 F Blood Pressure: 225/56 Pulse: 69 Respirations: 18 Pulse Ox (%): 98 - Physical Exam General: Alert, Oriented x3, Mild distress HEENT: Atraumatic Neck: Supple Respiratory: Normal air movement, Crackles/rales, Expiratory wheezes, Inspiratory wheezes Cardiovascular: Regular rate/rhythm, Normal S1 S2 Gastrointestinal: Normal bowel sounds, No tenderness Musculoskeletal: No tenderness Integumentary: No rashes Neurological: Normal speech, Normal tone, Normal affect Lymphatics: No axilla or inguinal lymphadenopathy - Studies Medications List Reviewed: Yes Assessment & Plan - Problems (Diagnosis) (1) Pleural effusion Current Visit: Yes Status: Acute Plan: Acute Pleural Effusion BL -Pulmonology Consulted. Appreciate reccs -Overnight pulse ox and room Air pulse ox -Lasix BID and HD scheduled. (2) Lethargic Onset Date: 12/26/17 Current Visit: Yes Status: Acute Plan: Most likely 2.2 to Narcotics overdose. Now more alert and oriented. Resolved. -Held [place] and other narcotics at this time. (3) CHF (congestive heart failure) Onset Date: 09/05/17 Current Visit: No Status: Chronic Plan: CHF with volume overload on the Xray. CT with Pleural Effusion -IV lasix BID -HD scheduled for negra again -ECHO with no changes. Qualifiers: Heart failure type: systolic Heart failure chronicity: acute on chronic Qualified Code(s): I50.23 - Acute on chronic systolic (congestive) heart failure (4) Diabetes Onset Date: 09/12/17 Current Visit: No Status: Chronic Plan: ISS Qualifiers: Diabetes mellitus type: type 2 Diabetes mellitus rn long term care insulin use: with [facility] use Diabetes mellitus complication status: without complication Qualified Code(s): E11.9 - Type 2 diabetes mellitus without complications; Z79.4 - [facility]iary (current) use of insulin; Z79.4 - penitentiary ( current) use of insulin; Z79.4 - [facility] [employer] operator (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 (6) Hypertension Onset Date: 09/12/17 Current Visit: No Status: Chronic Plan: Restart home medication Qualifiers: Hypertension type: essential hypertension Discharge Plan: Jail Plan to discharge in: 24 Hours - Code Status/Comfort Care Code Status Assessed: Yes Critical Care: No
--- NOTE | 2017-12-26 19:34 | P.PN ---
Date of Service: 12/26/17 Vital Signs Temp Pulse Resp BP Pulse Ox 97.8 F 69 18 225/56 H 98 12/26/17 17:01 12/26/17 17:37 12/26/17 17:01 12/26/17 17:37 12/26/17 17:01 Medications Acetaminophen (Tylenol -Extra Strength) 500 mg PO Q4HP PRN PRN Reason: [id number] Stop: 01/24/18 11:52 Last Admin: 12/26/17 06:44 Dose: 500 mg Acetaminophen (Tylenol -Extra Strength) 500 mg PO Q4HP PRN PRN Reason: PAIN Stop: 01/25/18 11:15 Albuterol Sulfate (Proventil 0.083% Neb Soln) 2.5 mg NEB Q6HP PRN PRN Reason: SHORTNESS OF BREATH Stop: 01/25/18 15:01 Amlodipine Besylate (Norvasc) 10 mg PO DAILY AKIRA Stop: 01/26/18 09:01 Atorvastatin Calcium (Lipitor) 10 mg PO BEDTIME AKIRA Stop: 01/25/18 21:01 Benzonatate (Tessalon Perle) 200 mg PO Q8HP PRN PRN Reason: COUGH Stop: 01/25/18 11:15 Citalopram Hydrobromide (Celexa) 10 mg PO DAILY AKIRA Stop: 01/26/18 09:01 Clonidine HCl (Catapres) 0.1 mg PO TID AKIRA Stop: 01/24/18 21:01 Last Admin: 12/26/17 14:57 Dose: 0.1 mg Dextrose (Dextrose 50% Syringe) 12.5 gm IV PRN PRN PRN Reason: HYPOGLYCEMIA Stop: 01/24/18 16:08 Docusate Sodium (Colace Cap) 100 mg PO BID AKIRA Stop: 01/25/18 21:01 Epoetin Ignacio (Procrit) 10,000 unit IV EVERY HD AKIRA Stop: 01/24/18 19:01 Furosemide (Lasix) 40 mg IV BIDL AKIRA Stop: 01/24/18 17:01 Last Admin: 12/26/17 17:37 Dose: 40 mg Glucagon (Glucagen) 1 mg IM 1X PRN PRN Reason: HYPOGLYCEMIA Stop: 01/24/18 16:08 Albumin Human (Albumin 25%) 50 mls @ 100 mls/hr IV EVERY HD AKIRA Stop: 01/24/18 19:01 Insulin Human Regular (Novolin -R) 0 unit SQ ACHS AKIRA PRN Reason: Protocol Stop: 01/24/18 16:31 Last Admin: 12/26/17 15:59 Dose: Not Given Lorazepam (Ativan) 0.5 mg PO BEDTIME AKIRA Stop: 01/25/18 21:01 Lorazepam (Ativan) 1 mg PO EVERY HD AKIRA Stop: 01/25/18 12:01 Magnesium Hydroxide (Milk Of Magnesia) 30 ml PO DAILY PRN PRN Reason: CONSTIPATION Stop: 01/25/18 12:24 Mannitol (Mannitol 12.5 Gm/50 Ml Vial) 12.5 gm IV EVERY HD PRN PRN Reason: BP support at hemodialysis Stop: 01/24/18 18:55 Melatonin (Melatonin) 6 mg PO BEDTIME AKIRA Stop: 01/25/18 21:01 Metoprolol Tartrate (Lopressor) 100 mg PO BID AKIRA Stop: 01/24/18 21:01 Last Admin: 12/26/17 08:47 Dose: Not Given Ondansetron HCl (Zofran) 4 mg PO Q6HP PRN PRN Reason: NAUSEA / VOMITING Stop: 01/24/18 11:52 Pentoxifylline (Trental Er) 400 mg PO DAILY AKIRA Stop: 01/25/18 09:01 Last Admin: 12/26/17 08:34 Dose: 400 mg Pyridoxine HCl (Vitamin B-6) 100 mg PO BEDTIME AKIRA Stop: 01/25/18 21:01 Ramipril (Altace) 10 mg PO BEDTIME AKIRA Stop: 01/25/18 21:01 Sevelamer Carbonate (Renvela) 800 mg PO TIDWM AKIRA Stop: 01/24/18 17:01 Last Admin: 12/26/17 17:37 Dose: 800 mg Sodium Chloride (Normal Saline Flush) 10 ml IV BID AKIRA Stop: 01/24/18 21:01 Last Admin: 12/26/17 14:48 Dose: 10 ml Microbiology Results 12/25/17 09:55 Blood - Blood Aerobic Blood Culture - Preliminary No growth in 24 hours. 12/25/17 09:55 Blood - Blood Anaerobic Blood Culture - Preliminary No growth in 24 hours. Assessment/ Plan: Nephrology. Feeling better today. CPS stable without CP or SOB. +ORTEGA No acute events overnight. Vitals, medications, blood work and imaging reviewed in the chart. General: In no apparent distress, Oriented x3, Cooperative HEENT: Atraumatic Neck: Supple Respiratory: Crackles/rales Cardiovascular: Regular rate/rhythm, Edema Gastrointestinal: Hypoactive, Soft and benign, Non-distended Musculoskeletal: No clubbing, No contractures Integumentary: No cyanosis, Rash(es) Neurological: Normal speech Laboratory Data (last 24 hrs) 12/25/17 10:00: PT 12.9 H, INR 1.09 12/25/17 10:00: WBC 8.4, Hgb 10.0 L, Hct 29.6 L, Plt Count 180 12/25/17 10:00: B-Natriuretic Peptide 1572 H 12/25/17 10:00: Sodium 136, Potassium 3.9, BUN 41 H, Creatinine 6.07 H*, Glucose 104, Magnesium 2.2, Total Bilirubin 0.7, AST 21, ALT 14, Alkaline Phosphatase 78 Imagings Data: EXAM DESCRIPTION: RADChest Single View12/25/2017 9:46 am CLINICAL HISTORY: Shortness of breath COMPARISON: August 2017 FINDINGS: Moderate bilateral pulmonary opacities are present. There probably are small to moderate bilateral pleural effusions. The heart is enlarged IMPRESSION: CHF Conclusions/Impression: A/ ESRD on HD. A/C Diastolic CHF. BL pulmonary effusions. HTN with CKD. Anemia in CKD. GENNARO/ Secondary HyperPTH. Psoriasis. P/ Continue current POC and Medications. Arrange for acute HD Friday. Follow up with pulmonary for effusions. Consider thoracentesis as needed. AM labs. Daily weight. Case discussed with Dr. Crews
[2017-12-26] MEDS ORDERED: MELATONIN PO SCH (21:00)
[2017-12-26] MEDS ORDERED: PYRIDOXINE HCL PO SCH (21:00)
[2017-12-26] MEDS: MELATONIN 3 MG TABLET PO SCH (21:26)
[2017-12-26] MEDS: PYRIDOXINE (VIT B6) 50 MG TAB PO SCH (21:26)
[2017-12-26] MEDS: DOCUSATE NA 100 MG CAP PO SCH (21:28)
[2017-12-26] MEDS: RAMIPRIL 5 MG CAP PO SCH (21:28)
[2017-12-26] MEDS: LORAZEPAM 0.5 MG TABLET PO SCH (21:28)
[2017-12-26] MEDS: ATORVASTATIN 10 MG TAB PO SCH (21:29)
[2017-12-27] MEDS ORDERED: HYDRALAZINE HCL 20 MG/ML VIAL IV PRN (04:42)
[2017-12-27 05:11] LABS: Absolute Lymphocytes (CBC) 1.2 K/uL (0.7-4.9); Absolute Monocytes 0.7 K/uL (0.1-1.3); Absolute Neutrophil 6.7 K/uL (1.8-8.0); Basophils % 0.2 % (0-1.3); Eosinophils % 6.9 % (0-4.4); Hematocrit 31.2 % (39.6-49.0); Lymphocytes % 12.8 % (15.3-44.8); MCH 29.7 pg (27.0-35.0); MCV 89.6 fL (80-100); MPV 8.1 fL (7.6-11.3); RBC Red Blood Cell Count 3.48 M/uL (4.33-5.43)
[2017-12-27 05:40] LABS: Albumin 3.3 g/dL (3.2-5.5); Bilirubin Total 0.6 mg/dL (0.3-1.2); Magnesium 2.2 mg/dL (1.8-2.5); Phosphorus 5.4 mg/dL (2.5-4.3); Potassium 4.3 mEq/L (3.6-5.0); Protein, Total 7.2 g/dL (6.0-8.3)
[2017-12-27] MEDS: INSULIN -REGULAR HUMAN 50 UNIT/0.5 ML ML SQ SCH ×4 (07:30→21:00)
[2017-12-27] MEDS: cloNIDine HCl 0.1 MG TAB PO SCH ×3 (09:00→22:10)
[2017-12-27] MEDS ORDERED: AMLODIPINE 10 MG TAB PO SCH (09:00)
[2017-12-27] MEDS: FUROSEMIDE 40 MG/4 ML VIAL IV SCH ×2 (09:00→16:39)
[2017-12-27] MEDS: SEVELAMER CARBONATE 800 MG TABLET PO SCH ×3 (09:00→16:39)
[2017-12-27] MEDS ORDERED: CITALOPRAM 10 MG TABLET PO SCH (09:00)
[2017-12-27] MEDS: METOPROLOL TAR 50 MG TAB PO SCH ×2 (09:01→22:09)
[2017-12-27] MEDS: DOCUSATE NA 100 MG CAP PO SCH ×2 (09:01→22:10)
[2017-12-27] MEDS: PENTOXIFYLLINE ER 400 MG TAB PO SCH (09:01)
[2017-12-27] MEDS: ACETAMINOPHEN 500 MG TAB PO PRN (12:52)
[2017-12-27 13:54] VITALS: O2SAT 98
--- NOTE | 2017-12-27 14:47 | P.SSS ---
Patient History Date of Service: 12/27/17 Primary Care Provider: None Reason for admission: Shortness of breath History of Present Illness: 55-year-old male with significant past medical history of hypertension, diabetes , end-stage renal disease on hemodialysis Friday who presented to the hospital from the intermediate. Patient nurse at the intermediate stated that patient was found to be more lethargic and somnolent when they got him up to go to dialysis. Patient has had some pain medications this morning after which she became lethargic in the progressively worse and thus EMS was called to transfer the patient to the ER. Once in the ER patient was more alert and oriented and was able to answer question. Patient denied having any fever chills nausea vomiting chest pain or shortness of breath at this time. Patient does not recall the episode of being lethargic at the intermediate. Patient does however states he has been feeling weak for past couple of days at the intermediate. Allergies morphine Allergy (Mild, Verified 09/11/17 15:03) Itching/Hives/Rash Home Medications: Metoprolol Tartrate [Lopressor] 100 mg PO BID 03/27/16 Clonidine HCl [Catapres*] 0.1 mg PO TID 09/11/17 Furosemide [Lasix*] 80 mg PO DAILY 09/11/17 Hydrocodone 7.5/APAP 325 [Challenge 7.5/325 mg*] 1 tab PO Q6HP PRN 09/11/17 Lorazepam [Ativan*] 0.5 mg PO BEDTIME 09/11/17 Pentoxifylline 400 mg PO DAILY 09/11/17 Sevelamer Carbonate [Renvela*] 800 mg PO TID 09/11/17 Acetaminophen 500 mg PO Q4HP PRN 12/25/17 Albuterol Sulfate [Albuterol Sulfate 0.083% Neb Soln] 1 vial NEB Q6HP PRN Amlodipine [Norvasc*] 1 tab PO DAILY 12/25/17 Atorvastatin Calcium [Lipitor*] 1 tab PO BEDTIME 12/25/17 Benzonatate [Tessalon Perle*] 2 cap PO Q8HP PRN 12/25/17 Citalopram [Celexa*] 1 tab PO DAILY 12/25/17 Dextroamphetamine/Amphetamine [Adderall 30 mg Tablet] 30 mg PO DAILY 12/25/17 Diphenox/Atropine [Lomotil*] 1 tab PO Q8HP PRN 12/25/17 Docusate Sodium 1 cap PO BID 12/25/17 Hydrocodone 7.5/APAP 325 [Challenge 7.5/325 mg*] 1 tab PO BID 12/25/17 Insulin Aspart [Novolog Flexpen] 1 unit SQ DAILY 12/25/17 Ipratropium/Albuterol Sulfate [Iprat-Albut 0.5-3(2.5) mg/3 ml] 1 vial NEB Q6HP PRN 12/25/17 Lorazepam [Ativan*] 1 mg PO T,TH,S 12/25/17 Mag Hydroxide 8% [Milk Of Magnesia*] 30 ml PO DAILY PRN 12/25/17 Melatonin/Pyridoxine HCl (B6) [Melatonin 3 mg Tablet] 6 mg PO BEDTIME 12/25/17 Promethazine HCl 25 mg PO Q6HP PRN 12/25/17 Ramipril [Altace] 10 mg PO BEDTIME 12/25/17 - Past Medical/Surgical History Has patient received pneumonia vaccine in the past: Yes Diabetic: Yes -: Hypertension -: Psoriasis -: Depression -: Diabetes mellitus type 2 -: Anxiety -: History of osteomyelitis with amputations -: End-stage renal disease, nephrology-Dr. Valdes -: Morbid obesity -: Multiple toe amputations -: Previous incision and drainage of multiple abscesses -: Cholecystectomy -: Tonsillectomy Psychosocial/ Personal History: The patient lives by himself. He is currently single. He has been trying to set up going and living in a intermediate. - Family History Father -: Heart disease, Diabetes, Kidney disease Notes: of an ND Mother -: Diabetes Notes: in a car accident - Social History Smoking Status: Never smoker Alcohol use: No CD- Drugs: No Caffeine use: Yes Place of Residence: [facility] Review of Systems 10-point ROS is otherwise unremarkable Physical Examination - Vital Signs Temperature: 97.0 F Blood Pressure: 203/72 Pulse: 52 Respirations: 18 Pulse Ox (%): 97 - Physical Exam General: Alert, In no apparent distress HEENT: Atraumatic, PERRLA, Mucous membr. moist/pink, EOMI, Sclerae nonicteric Neck: Supple, 2+ carotid pulse no bruit, No LAD, Without JVD or thyroid abnormality Respiratory: Clear to auscultation bilaterally, Normal air movement Cardiovascular: Regular rate/rhythm, Normal S1 S2 Gastrointestinal: Normal bowel sounds, No tenderness Musculoskeletal: No tenderness Integumentary: No rashes Neurological: Normal gait, Normal speech, Normal strength at 5/5 x4 extr, Normal tone, Normal affect Lymphatics: No axilla or inguinal lymphadenopathy - Diagnosis (Problem(s)) (1) Pleural effusion Current Visit: Yes Status: Acute Plan: Acute Pleural Effusion BL. Marked improvement today. Pt to be discharged back to [facility] today. Will continue with lasix and HD at the [facility]. Pt does have oxygen at the intermediate which will be used for him in case of dyspnea. (2) Lethargic Onset Date: 12/26/17 Current Visit: Yes Status: Resolved Plan: Most likely 2.2 to Narcotics overdose. Now more alert and oriented. Resolved. Report given to the nursing monty to Hold Challenge and other narcotics at this time and restart at the lower dose and increase as pt can tolerate it. (3) CHF (congestive heart failure) Onset Date: 09/05/17 Current Visit: No Status: Chronic Plan: CHF with volume overload on the Xray. CT with Pleural Effusion. Improved now. Continue on PO lasix BID and HD. Adjustment made for HD to pull fluid over next week per nephrology reccs. ECHO with no changes. Qualifiers: Heart failure type: systolic Heart failure chronicity: acute on chronic Qualified Code(s): I50.23 - Acute on chronic systolic (congestive) heart failure (4) Diabetes Onset Date: 09/12/17 Current Visit: No Status: Chronic Plan: ISS Qualifiers: Diabetes mellitus type: type 2 Diabetes mellitus longwall foreman insulin use: with longwall foreman use Diabetes mellitus complication status: without complication Qualified Code(s): E11.9 - Type 2 diabetes mellitus without complications; Z79.4 - halfway (current) use of insulin; Z79.4 - halfway ( current) use of insulin; Z79.4 - halfway (current) use of insulin; Z79.4 - halfway (current) use of insulin (5) ESRD (end stage renal disease) Onset Date: 09/12/17 Current Visit: No Status: Chronic Plan: On HD and friday. Resume (6) Hypertension Onset Date: 09/12/17 Current Visit: No Status: Chronic Plan: Restart home medication Qualifiers: Hypertension type: essential hypertension - Disposition Disposition: ROUTINE DISCHARGE Condition: GOOD Diet: Regular Activity: Ad jason
--- NOTE | 2017-12-27 18:33 | PN ---
Date of Progress Note: 12/27/2017 Subjective: The patient is seen at the bedside. No overnight events reported. The patient feels we ll. He said that his breathing status has improved, especially with the oxygen. He is awaiting dial ysis today. Objective: Vital Signs: Blood pressure 203/72, pulse 58, and afebrile. General: No acute distress. Heart: Regular rate and rhythm. No murmurs, rubs, gallops. Lungs: Clear to auscultation bilaterally. Abdomen: Soft, nontender, and nondistended. Positive bowel sounds x4. Extremities: No significant edema. Laboratory Data: CBC reviewed stable. Serum chemistry; sodium 139, potassium 4.3, chloride 103, CO2 of 26, BUN 42, creatinine 5.41, glucose 111, calcium 9.8, phosphorus 5.4. Current Medications: Amlodipine 10 mg daily, clonidine 0.1 t.i.d., Lasix 40 mg IV b.i.d., hydralazin e p.r.n., ramipril 10 mg p.o. at bedtime. Impression: 1.End-stage renal disease, on hemodialysis. 2.Volume overload. 3.Uncontrolled hypertension. 4.Anemia in the setting of chronic kidney disease. Plan: The patient is to receive dialysis today; however, blood pressure remains uncontrolled. I am stopping amlodipine and starting the patient on nifedipine 60 mg daily as the patient has had uncontrolled pressures. Monitor for effect. I have communicated to the dialysis unit to have extra volume removed at dialysis treatments. /ELIZA Voice ID: [id number] Report ID: [id number]
[2017-12-27] MEDS: RAMIPRIL 5 MG CAP PO SCH (22:08)
[2017-12-27 22:09] VITALS: BP 156/65; TEMP 98.4
[2017-12-27] MEDS: PYRIDOXINE (VIT B6) 50 MG TAB PO SCH (22:09)
[2017-12-27] MEDS: MELATONIN 3 MG TABLET PO SCH (22:09)
[2017-12-27] MEDS: LORAZEPAM 0.5 MG TABLET PO SCH (22:10)
[2017-12-27] MEDS: ATORVASTATIN 10 MG TAB PO SCH (22:10)
[2017-12-28] MEDS ORDERED: NIFEDIPINE XL 60 MG TABLET PO SCH (09:00)
== END 2017-12-27 22:41 ==
LOC: ER 09:20 → ERHOLD 11:34 → 4TH 13:25
PROVIDERS: ADMIT Family Medicine; ATTEND Family Medicine
DX: T40.601A Poisoning by unspecified narcotics, accidental (unintentional), initial encounter (principal); E11.22 Type 2 diabetes mellitus with diabetic chronic kidney disease; N18.6 End stage renal disease; I13.2 Hypertensive heart and chronic kidney disease with heart failure and with stage 5 chronic kidney disease, or end stage renal disease; I50.23 Acute on chronic systolic (congestive) heart failure; N25.81 Secondary hyperparathyroidism of renal origin; L40.9 Psoriasis, unspecified; F41.9 Anxiety disorder, unspecified; D63.1 Anemia in chronic kidney disease; E66.01 Morbid (severe) obesity due to excess calories; Z99.2 Dependence on renal dialysis
CPT/HCPCS: 36415 ×3; 71045; 71250; 80048; 80053 ×3; 80061; 80076; 82550; 82805; 82962 ×11; 83036; 83735 ×3; 83880; 84100 ×2; 84484; 85025 ×3; 85610; 87040 ×2; 90935 ×2; 93005; 93306; 94760; 99285; G0378 ×2; J0360 ×2; G0257

== ENCOUNTER 2018-06-05 17:16 | Observation (INO) | payer OTHER ==
--- OUTSIDE RECORDS SUMMARY | 2018-06-05 17:18 | XMS REPORT | Clinical Summary ---
:1965 Author Organization [facility] Address [address] [place] [id number] Care Team Providers Name Role Phone Eduardo [...] Health Maintenance Due Date Last Done Comments COLON CANCER SCREENING 2013 SHINGRIX VACCINE (#1) 2013 INFLUENZA VACCINE 04/15/2018 Implants Implanted Type Area Operational Risk Consultant Device Expiration Model / Identifier Date Serial / Lot Clip Ligtng Weck Hemoclip Plus W/ Tape Ti Med - [id number] Medical N/A: N/A TELEFLEX MEDICAL [id number] / Implanted: 02/28/2016 (Quantity not on file) Clips for / Internal Use Clip Ligtng Weck Hemoclip Plus W/ Tape Ti - [id number] Medical N/A: N/A WECK CLOSURE [id number] / Implanted: 02/28/2016 (Quantity not on file) Clips for SYSTEMS / Internal Use Results Not on fileafter 06/04/2017 Insurance Payer Benefit Plan / Group Subscriber ID Type Phone Address MEDICARE MEDICARE PART A AND B xxxxxxxxxx Medicare [place], [place] [address]
[2018-06-05 18:09] LABS: Absolute Lymphocytes (CBC) 0.9 K/uL (0.7-4.9); Absolute Monocytes 0.5 K/uL (0.1-1.3); Absolute Neutrophil 5.6 K/uL (1.8-8.0); Basophils % 0.7 % (0-1.3); Eosinophils % 1.4 % (0-4.4); Hematocrit 31.2 % (39.6-49.0); Lymphocytes % 12.2 % (15.3-44.8); MCH 26.2 pg (27.0-35.0); MCV 81.2 fL (80-100); MPV 7.8 fL (7.6-11.3); Monocytes % 7.1 % (3.3-12.3); RBC Red Blood Cell Count 3.84 M/uL (4.33-5.43)
--- NOTE | 2018-06-05 18:19 | RAD REPORT ---
EXAM DESCRIPTION: CT - Head Brain Wo Cont - 06/05/2018 6:11 pm CLINICAL HISTORY: [facility]MS Drowsiness COMPARISON: Head Brain Wo Cont dated 06/27/2016; Head Brain Wo Cont dated 03/26/2016 TECHNIQUE: All CT scans are performed using dose optimization technique as appropriate and may inclu de automated exposure control or mA/KV adjustment according to patient size. FINDINGS: No intracranial hemorrhage, hydrocephalus or extra-axial fluid collection.Mild generalized brain atrophy is present with mild periventricular and deep white matter chronic microvascular ische heather changes.No areas of brain edema or evidence of midline shift. The paranasal sinuses and mastoids are clear. The calvarium is intact. Atherosclerosis. IMPRESSION: No acute intracranial abnormality.
[2018-06-05 18:30] LABS: Protime INR 1.25
--- NOTE | 2018-06-05 18:34 | RAD REPORT ---
EXAM DESCRIPTION: RAD - Chest Single View - 06/05/2018 6:20 pm CLINICAL HISTORY: ams Chest pain. COMPARISON: Chest Single View dated 12/25/2017; Chest Single View dated 09/13/2017; Chest Single View dated 09/12/2017; Chest Single View dated 09/11/2017; Thorax Wo Con dated 12/26/2017 FINDINGS: Portable technique limits examination quality. One moderate bilateral pulmonary opacities likely represent pulmonary edema or pneumonia. Bilateral p leural effusions are present, greater on the left. Significant cardiomegaly is seen. IMPRESSION: Mild to moderate CHF versus volume overload pattern.
[2018-06-05 18:35] LABS: ALT/SGPT 14 U/L (12-78); AST/SGOT 15 U/L (15-37); Albumin 2.7 g/dL (3.4-5.0); Alkaline Phosphatase 208 U/L (45-117); BUN Blood Urea Nitrogen 30 mg/dL (7-18); Bicarbonate 33 mmol/L (21-32); Bilirubin Direct 0.2 mg/dL (0-0.2); Bilirubin Total 0.4 mg/dL (0.2-1.0); CKMB Creatine Kinase MB 2.4 ng/mL (0.3-3.6); Glucose Level 99 mg/dL (74-106); Lipase 30 U/L (73-393); Potassium 4.1 mmol/L (3.5-5.1); Protein, Total 8.4 g/dL (6.4-8.2); Sodium Level 140 mmol/L (136-145); Troponin I < 0.02 ng/mL (0.0-0.045)
[2018-06-05 19:07] LABS: Urine Bacteria >50 /HPF (NONE SEEN); Urine Culture Reflex Order REFLEXED
[2018-06-05 19:18] LABS: Urine Blood 2+ (NEG); Urine Glucose NEGATIVE (NEG); Urine Protein 3+ (NEG); Urine Specific Gravity 1.025 (1.005-1.030)
--- NOTE | 2018-06-05 19:26 | ER ---
Nurse's Notes [facility] Name: Ari Izquierdo Age: 53 yrs Sex: Male : 1965 Arrival Date: 06/05/2018 Time: 17:10 Bed 14 Private MD: Diagnosis: Urinary tract infection, site not specified;Other sepsis Presentation: 06/05 17:16 Presenting complaint: EMS states: [facility] reports HR 40s and altered mental status hb since this morning. On scene pt lethargic, slow to respond but answering questions appropriately, reported not feeling well for several days. Denies pain. HD T-Th-Sat. Transition of care: patient was not received from another setting of care. Onset of symptoms was June 05, 2018. Risk Assessment: Do you want to hurt yourself or someone else? Patient reports no desire to harm self or others. Note BP 180/90, HR 57, SpO2 93% on RA, BGL 160. Care prior to arrival: None. 17:16 Method Of Arrival: EMS: [facility] hb 17:16 Acuity: RACHANA 2 hb 17:30 Initial Sepsis Screen: Does the patient meet any 2 criteria? No. Patient's initial hb sepsis screen is negative. Does the patient have a suspected source of infection? No. Patient's initial sepsis screen is negative. Historical: - Allergies: 17:21 Morphine; hb - Home Meds: 17:21 amlodipine 10 mg tab 1 tab twice a day [Active]; atorvastatin 10 mg Oral tab 1 tab once hb daily [Active]; citalopram 20 mg tab 1 tab once daily [Active]; clonidine HCl 0.1 mg Oral tab 1 tab 3 times per day [Active]; ferrous sulfate 325 mg (65 mg iron) Oral tab 1 tab twice a day [Active]; lorazepam 0.5 mg Oral tab daily [Active]; metoprolol tartrate 100 mg Oral tab 1 tab 2 times per day [Active]; [place] 5-325 mg Oral tab 1 tab every 6 hours [Active]; ramipril 10 mg Oral cap 1 cap once daily [Active]; Renvela 800 mg Oral tab 1 tab 3 times per day [Active]; terazosin 5 mg Oral cap 1 cap twice a day [Active]; Tresiba FlexTouch U-200 200 unit/mL (3 mL) subcutaneous inpn 120 unit daily [Active]; - PMHx: 17:21 Anemia; CHF; Depression; Diabetes - IDDM; ESRD; Hypertension; psoriasis; TIA; hb - Immunization history:: Adult Immunizations up to date. - Social history:: Smoking status: Patient/guardian denies using tobacco. - Ebola Screening: : No symptoms or risks identified at this time. Screenin:22 Abuse screen: Denies threats or abuse. Denies injuries from another. Nutritional hb screening: No deficits noted. Tuberculosis screening: No symptoms or risk factors identified. Fall Risk Total Hamlin Fall Scale indicates High Risk Score (45 or more points). Fall prevention measures have been instituted. Side Rails Up X 2 Frequent Obs/Assessments Occuring As available patient and family educated on Fall Prevention Program and Strategies. Assessment: 17:20 General: Appears ill, Behavior is calm, cooperative. Pain: Denies pain. Neuro: Level of hb Consciousness is obeys commands, lethargic, Oriented to person, place, time, situation, Pupils are PERRLA. Cardiovascular: Heart tones S1 S2 present Capillary refill < 3 seconds Patient's skin is warm and dry. Respiratory: Airway is patent Trachea midline Respiratory effort is even, unlabored, Respiratory pattern is regular, symmetrical, Breath sounds are clear bilaterally. GI: No signs and/or symptoms were reported involving the gastrointestinal system. : No signs and/or symptoms were reported regarding the genitourinary system. EENT: No signs and/or symptoms were reported regarding the EENT system. Derm: Skin is pink, warm \T\ dry. redness and skin flanking to bilateral hands. Musculoskeletal: No signs and/or symptoms reported regarding the musculoskeletal system. 18:25 Reassessment: Patient appears in no apparent distress at this time. No changes from hb previously documented assessment. Patient and/or family updated on plan of care and expected duration. Pain level reassessed. VSS. 19:07 General: Appears in no apparent distress. comfortable, Behavior is calm, cooperative. ao Pain: Denies pain. Neuro: Level of Consciousness is awake, obeys commands, lethargic, Oriented to person, place, time, situation, Pupils are PERRLA. Cardiovascular: Heart tones S1 S2 present Capillary refill < 3 seconds Patient's skin is warm and dry. Respiratory: Airway is patent Respiratory effort is even, unlabored, Respiratory pattern is regular, symmetrical, Breath sounds are clear bilaterally. GI: No signs and/or symptoms were reported involving the gastrointestinal system. : No signs and/or symptoms were reported regarding the genitourinary system. EENT: No signs and/or symptoms were reported regarding the EENT system. Derm: Skin is pink, warm \T\ dry. Musculoskeletal: No signs and/or symptoms reported regarding the musculoskeletal system. Circulation, motion, and sensation intact. Swelling present in right hand. 20:13 Reassessment: Patient appears in no apparent distress at this time. Patient and/or ao family updated on plan of care and expected duration. Pain level reassessed. Patient to be admitted. Waiting on room assignment. Dr Arita had already seing patient. 21:30 Reassessment: Report given to CRIS Nava. Patient going to his room at this time. ao Vital Signs: 17:16 BP 182 / 68; Pulse 54; Resp 14; Temp 98.4(O); Pulse Ox 93% on R/A; Pain 0/10; hb 17:19 Pulse Ox 100% on 2 lpm NC; hb 18:23 BP 165 / 97; Pulse 54; Resp 14; Pulse Ox 100% on 2 lpm NC; hb 19:07 BP 128 / 96; Pulse 56; Resp 16; Pulse Ox 97% on R/A; Pain 0/10; ao 20:13 BP 184 / 64; Pulse 61; Resp 18; Pulse Ox 99% ; Pain 7/10; ao ED Course: 17:10 Patient arrived in ED. hb 17:14 Peggy Lock, SYL is Primary Nurse. hb 17:14 Sandip Argueta PA is PHCP. cp 17:14 Samir Butler MD is Attending Physician. cp 17:18 Triage completed. hb 17:22 Arm band placed on right wrist. hb 17:24 Missed attempt(s): 24 gauge in left forearm. Bleeding controlled, band aid applied, hb catheter tip intact. 17:25 Patient has correct armband on for positive identification. Placed in gown. Bed in low hb position. Call light in reach. Side rails up X2. 17:27 Missed attempt(s): 24 gauge in left forearm. Bleeding controlled, band aid applied, hb catheter tip intact. 17:30 Missed attempt(s): 22 gauge in right antecubital area. Bleeding controlled, band aid hb applied, catheter tip intact. 17:33 EKG done, by imaging tech. reviewed by Sandip SOLIS. sm3 17:36 Missed attempt(s): 24 gauge in left hand. Bleeding controlled, band aid applied, hb catheter tip intact. 18:[address] via stretcher. [id number] 18:09 Head Brain Wo Cont In Process Unspecified. EDMS 18:20 Chest Single View In Process Unspecified. EDMS 18:50 Straight cath inserted, using sterile technique, 16 Fr. Specimen obtained. Returned hb cloudy urine. Patient tolerated well. 19:24 Armond Davis MD is Hospitalizing Provider. cp 19:41 Blood Culture Sent. ao 19:41 Blood Culture Sent. ao 21:29 No provider procedures requiring assistance completed. Patient admitted, IV remains in ao place. Administered Medications: 19:37 Drug: Cefepime 1 grams Route: IVPB; Rate: 200 ml/hr; Infused Over: 30 mins; Site: left ao hand; 20:12 Follow up: IV Status: Completed infusion; IV Intake: 100ml ao 20:12 Drug: vancoMYCIN 1 grams Route: IVPB; Infused Over: 2 hrs; Site: left hand; ao 21:32 Follow up: IV Status: Infusion continued upon admission ao Intake: 20:12 IV: 100ml; Total: 100ml. ao Outcome: 19:25 Decision to Hospitalize by Provider. cp 21:30 Admitted to Med/surg accompanied by tech, room 224, with chart, Report called to belkis Nava LVN 21:30 Condition: stable 21:30 Instructed on the need for admit. 21:31 Patient left the ED. ao Signatures: Dispatcher [employer] EDAR Sandip Argueta PA PA cp Ortiz, Alex, RN RN Peggy Smith RN RN hb Montes, Shakira sm3 [place] [id number] Corrections: (The following items were deleted from the chart) 18:25 18:25 Reassessment: Patient appears in no apparent distress at this time. Patient hb and/or family updated on plan of care and expected duration. Pain level reassessed. Patient is alert, oriented x 3, equal unlabored respirations, skin warm/dry/pink. hb
--- NOTE | 2018-06-05 19:26 | EDPHYS ---
Physician Documentation [facility] Name: Ari Izquierdo Age: 53 yrs Sex: Male : 1965 Arrival Date: 06/05/2018 Time: 17:10 Bed 14 Private MD: ED Physician Samir Butler HPI: 06/05 17:20 This 53 yrs old Male presents to ER via EMS with complaints of Altered Mental cp Status. 17:20 The patient's problem is reported as weakness, that is generalized. Onset: The cp symptoms/episode began/occurred this morning. Duration: The episode is continuous. Context: Possible contributing factors include: Patient is a know diabetic. ESRD with dialysis. The patient presents with decreased responsiveness. Associated signs and symptoms: Pertinent negatives: abdominal pain, agitation, chest pain, headache, fever. Current symptoms: In the emergency department the patient's symptoms are unchanged from the initial presentation. Historical: - Allergies: 17:21 Morphine; hb - Home Meds: 17:21 amlodipine 10 mg tab 1 tab twice a day [Active]; atorvastatin 10 mg Oral tab 1 tab once hb daily [Active]; citalopram 20 mg tab 1 tab once daily [Active]; clonidine HCl 0.1 mg Oral tab 1 tab 3 times per day [Active]; ferrous sulfate 325 mg (65 mg iron) Oral tab 1 tab twice a day [Active]; lorazepam 0.5 mg Oral tab daily [Active]; metoprolol tartrate 100 mg Oral tab 1 tab 2 times per day [Active]; [place] 5-325 mg Oral tab 1 tab every 6 hours [Active]; ramipril 10 mg Oral cap 1 cap once daily [Active]; Renvela 800 mg Oral tab 1 tab 3 times per day [Active]; terazosin 5 mg Oral cap 1 cap twice a day [Active]; Tresiba FlexTouch U-200 200 unit/mL (3 mL) subcutaneous inpn 120 unit daily [Active]; - PMHx: 17:21 Anemia; CHF; Depression; Diabetes - IDDM; ESRD; Hypertension; psoriasis; TIA; hb - Immunization history:: Adult Immunizations up to date. - Social history:: Smoking status: Patient/guardian denies using tobacco. - Ebola Screening: : No symptoms or risks identified at this time. ROS: 17:30 Constitutional: Negative for body aches, chills, fever, poor PO intake. cp 17:30 Eyes: Negative for injury, pain, redness, and discharge. cp 17:30 ENT: Negative for drainage from ear(s), ear pain, sore throat, difficulty swallowing, difficulty handling secretions. 17:30 Cardiovascular: Negative for chest pain, edema, palpitations. 17:30 Respiratory: Negative for cough, shortness of breath, wheezing. 17:30 Abdomen/GI: Negative for abdominal pain, nausea, vomiting, and diarrhea, black/tarry stool, rectal bleeding. 17:30 Skin: Negative for cellulitis, rash. 17:30 Neuro: Positive for general weakness, Negative for altered mental status, headache, seizure activity. 17:30 All other systems are negative. Exam: 17:25 ECG was reviewed by the Attending Physician. cp 17:33 Constitutional: The patient appears in no acute distress, alert, awake, cp non-diaphoretic, non-toxic, well developed, well nourished. 17:33 Head/Face: Normocephalic, atraumatic. cp 17:33 Eyes: Periorbital structures: appear normal, Pupils: equal, round, and reactive to light and accomodation, Extraocular movements: intact throughout, Conjunctiva: normal, no exudate, no injection, Sclera: no appreciated abnormality, Lids and lashes: appear normal, bilaterally. 17:33 ENT: External ear(s): are unremarkable, Ear canal(s): are normal, clear, TM's: dullness, bilaterally, Nose: is normal, Mouth: Lips: moist, Oral mucosa: pink and intact, moist, Posterior pharynx: is normal, airway is patent, no erythema, no exudate. 17:33 Neck: ROM/movement: is normal, is supple, without pain, no range of motions limitations, no meningismus, no nuchal rigidity. 17:33 Chest/axilla: Inspection: normal, Palpation: is normal, no crepitus, no tenderness. 17:33 Cardiovascular: Rate: bradycardic, Rhythm: regular, Edema: is not appreciated, JVD: is not appreciated. 17:33 Respiratory: the patient does not display signs of respiratory distress, Respirations: normal, no use of accessory muscles, no retractions, no splinting, no tachypnea, labored breathing, is not present, Breath sounds: are clear throughout, no decreased breath sounds, no stridor, no wheezing. 17:33 Abdomen/GI: Inspection: abdomen appears normal, Bowel sounds: active, all quadrants, Palpation: abdomen is soft and non-tender, in all quadrants. 17:33 Back: pain, is absent, ROM is normal. 17:33 Skin: cellulitis, is not appreciated, no rash present. 17:33 Neuro: Orientation: to person, place \T\ time. Mentation: able to follow commands, slow to respond, Cerebellar function: is grossly normal, Motor: moves all fours, general weakness w/o focal deficits, Sensation: no obvious gross deficits. 18:28 Radiologist reports: no acute findings cp Vital Signs: 17:16 BP 182 / 68; Pulse 54; Resp 14; Temp 98.4(O); Pulse Ox 93% on R/A; Pain 0/10; hb 17:19 Pulse Ox 100% on 2 lpm NC; hb 18:23 BP 165 / 97; Pulse 54; Resp 14; Pulse Ox 100% on 2 lpm NC; hb 19:07 BP 128 / 96; Pulse 56; Resp 16; Pulse Ox 97% on R/A; Pain 0/10; ao 20:13 BP 184 / 64; Pulse 61; Resp 18; Pulse Ox 99% ; Pain 7/10; ao MDM: 17:15 Patient medically screened. cp 19:24 Physician consultation: Armond Davis MD was called at 19:24, was contacted at 19:24, cp regarding admission, to the medical/surgical unit. patient's condition. 19:25 Data reviewed: vital signs, nurses notes, lab test result(s), EKG, radiologic studies, cp CT scan, plain films. 19:25 Test interpretation: by ED physician or midlevel provider: ECG, plain radiologic cp studies. 06/05 17:58 Order name: Basic Metabolic Panel; Complete Time: 18:37 EDMS 06/05 18:37 Interpretation: Normal except: CO2 33; BUN 30; CRE 4.60; GFR 13. cp 06/05 17:58 Order name: Liver (Hepatic) Function; Complete Time: 18:37 EDMS 06/05 18:37 Interpretation: Normal except: ALK 208; TP 8.4; ALB 2.7; GLOB 5.7; A/G 0.5. cp 06/05 17:58 Order name: CKMB Creatine Kinase MB; Complete Time: 18:37 EDIN 06/05 17:59 Order name: Troponin I; Complete Time: 18:37 [facility] 06/05 17:59 Order name: Lipase; Complete Time: 18:37 [facility] 06/05 17:59 Order name: Lactate; Complete Time: 18:25 [facility] 06/05 17:59 Order name: Procalcitonin; Complete Time: 19:01 EDIN 06/05 19:01 Interpretation: Abnormal: Procalcitonin 0.66. cp 06/05 17:59 Order name: CBC with Automated Diff; Complete Time: 18:25 [facility] 06/05 18:25 Interpretation: Normal except: RBC 3.84; HGB 10.1; HCT 31.2; MCV 81.2; MCH 26.2; RDW cp 17.1; MILLA% 78.6; LYM% 12.2. 06/05 17:59 Order name: Protime (+INR); Complete Time: 18:37 [facility] 06/05 17:59 Order name: PTT, Activated Partial Thromb; Complete Time: 18:37 [facility] 06/05 17:59 Order name: Blood Culture [facility] 06/05 17:59 Order name: Blood Culture [facility] 06/05 18:26 Order name: Urine Microscopic Only; Complete Time: 19:23 cp 06/05 19:06 Order name: Urine Dipstick--Ancillary (enter results); Complete Time: 19:23 [facility] 06/05 17:17 Order name: Accucheck; Complete Time: 18:08 cp 06/05 17:17 Order name: Cardiac monitoring; Complete Time: 17:48 cp 06/05 17:17 Order name: EKG - Nurse/Tech; Complete Time: 17:48 cp 06/05 17:17 Order name: IV Saline Lock - Large Bore; Complete Time: 17:48 cp 06/05 17:17 Order name: Labs collected and sent; Complete Time: 18:08 cp 06/05 17:17 Order name: O2 Per Protocol; Complete Time: 17:48 cp 06/05 17:17 Order name: O2 Sat Monitoring; Complete Time: 17:48 cp 06/05 17:52 Order name: EKG Electrocardiogram [facility] 06/05 17:55 Order name: Head Brain Wo Cont; Complete Time: 18:25 EDIN 06/05 17:58 Order name: Chest Single View; Complete Time: 18:37 EDIN 06/05 19:08 Order name: Urine Culture EDIN 06/05 19:35 Order name: CONS Physician Consult EDIN 06/05 18:26 Order name: Cath; Complete Time: 18:50 cp EC:25 Rate is 54 beats/min. Rhythm is regular. DE interval is normal. QRS interval is normal. cp QT interval is prolonged at 490 msec. Interpreted by me. Reviewed by me. Administered Medications: 19:37 Drug: Cefepime 1 grams Route: IVPB; Rate: 200 ml/hr; Infused Over: 30 mins; Site: left ao hand; 20:12 Follow up: IV Status: Completed infusion; IV Intake: 100ml ao 20:12 Drug: vancoMYCIN 1 grams Route: IVPB; Infused Over: 2 hrs; Site: left hand; ao 21:32 Follow up: IV Status: Infusion continued upon admission ao Disposition: 06/05/18 19:25 Hospitalization ordered by Armond Davis for Inpatient Admission. Preliminary diagnosis are Urinary tract infection, site not specified, Other sepsis. - Bed requested for Telemetry/MedSurg (Inpatient). - Status is Inpatient Admission. ao - Condition is Stable. - Problem is new. - Symptoms have improved. UTI on Admission? Yes Addendum: 06/08/2018 18:01 Co-signature as Attending Physician, Samir Butler MD. g s Signatures: Dispatcher [employer] [facility] Jess Gudino RN RN kl Page, Corey, PA PA cp Ortiz, Alex, RN RN ao Baxter, Heather, RN RN hb Starr, Gregory, MD MD Corrections: (The following items were deleted from the chart) 06/05 18:03 17:58 Head Brain Wo Cont ordered. [facility] EDIN 18:03 17:58 EKG Electrocardiogram ordered. [facility] :22 19:25 Hospitalization Ordered by Armond Davis MD for Inpatient Admission. Preliminary diagnosis is Urinary tract infection, site not specified; Other sepsis. Bed requested for Telemetry/MedSurg (Inpatient). Status is Inpatient Admission. Condition is Stable. Problem is new. Symptoms have improved. UTI on Admission? Yes. cp 21:31 20:22 06/05/2018 19:25 Hospitalization Ordered by Armond Davis MD for Inpatient ao Admission. Preliminary diagnosis is Urinary tract infection, site not specified; Other sepsis. Bed requested for Telemetry/MedSurg (Inpatient). Status is Inpatient Admission. Condition is Stable. Problem is new. Symptoms have improved. UTI on Admission? Yes. kl
[2018-06-05] MEDS ORDERED: VANCOMYCIN 1 GM/250 ML BAG ONE (19:36)
[2018-06-05] MEDS ORDERED: CEFEPIME 1 GM/100 ML BAG IV ONE (19:36)
--- NOTE | 2018-06-05 21:07 | P.HP ---
Certification for Inpatient Patient admitted to: Inpatient With expected LOS: >2 Midnights Practitioner: I am a practitioner with admitting privileges, knowledge of patient current condition, hospital course, and medical plan of care. Services: Services provided to patient in accordance with Admission requirements found in Title 42 Section 412.3 of the Code of Federal Regulations Patient History Date of Service: 06/05/18 Reason for admission: Generalize weakness History of Present Illness: Mr. Izquierdo is a 53-year-old gentleman with multiple medical problems including insulin-dependent diabetes mellitus, hypertension, end-stage renal disease on hemodialysis, chronic back pain, who came to ED complaining of progressive weakness starting about 3 or 4 days ago. He denied any fever or chills, he denied also cough, abdominal pain, nausea or vomiting. He states that about 4 days ago he started taking gabapentin as part of his home medication. When he called EMS, they found him bradycardic with heart rate about 40 BPM. EKG in ER shows sinus rhythm, rate 54, PAC's without ST-T abnormality. Lab work shows normal WBC count, but UA was abnormal. Allergies morphine Allergy (Mild, Verified 09/11/17 15:03) Itching/Hives/Rash Home medications list reviewed: Yes Home Medications: Metoprolol Tartrate [Lopressor] 100 mg PO BID 03/27/16 Furosemide [Lasix*] 80 mg PO DAILY 09/11/17 Hydrocodone 7.5/APAP 325 [[place] 7.5/325 mg*] 1 tab PO Q6HP PRN 09/11/17 LORazepam [Ativan*] 0.5 mg PO BEDTIME 09/11/17 Pentoxifylline 400 mg PO DAILY 09/11/17 Sevelamer Carbonate [Renvela*] 800 mg PO TID 09/11/17 cloNIDine HCl [Catapres*] 0.1 mg PO TID 09/11/17 Acetaminophen 500 mg PO Q4HP PRN 12/25/17 Albuterol Sulfate [Albuterol Sulfate 0.083% Neb Soln] 1 vial NEB Q6HP PRN Amlodipine [Norvasc*] 1 tab PO DAILY 12/25/17 Atorvastatin Calcium [Lipitor*] 1 tab PO BEDTIME 12/25/17 Benzonatate [Tessalon Perle*] 2 cap PO Q8HP PRN 12/25/17 Citalopram [Celexa*] 1 tab PO DAILY 12/25/17 Dextroamphetamine/Amphetamine [Adderall 30 mg Tablet] 30 mg PO DAILY 12/25/17 Diphenox/Atropine [Lomotil*] 1 tab PO Q8HP PRN 12/25/17 Docusate Sodium 1 cap PO BID 12/25/17 Hydrocodone 7.5/APAP 325 [[place] 7.5/325 mg*] 1 tab PO BID 12/25/17 Insulin Aspart [Novolog Flexpen] 1 unit SQ DAILY 12/25/17 Ipratropium/Albuterol Sulfate [Iprat-Albut 0.5-3(2.5) mg/3 ml] 1 vial NEB Q6HP PRN 12/25/17 LORazepam [Ativan*] 1 mg PO T,TH,S 12/25/17 Mag Hydroxide 8% [Milk Of Magnesia*] 30 ml PO DAILY PRN 12/25/17 Melatonin/Pyridoxine HCl (B6) [Melatonin 3 mg Tablet] 6 mg PO BEDTIME 12/25/17 Promethazine HCl 25 mg PO Q6HP PRN 12/25/17 Ramipril [Altace] 10 mg PO BEDTIME 12/25/17 - Past Medical/Surgical History Diabetic: Yes -: Hypertension -: Psoriasis -: Depression -: Diabetes mellitus type 2 -: Anxiety -: History of osteomyelitis with amputations -: End-stage renal disease, nephrology-Dr. Valdes -: Morbid obesity -: Chronic back pain -: Multiple toe amputations -: Previous incision and drainage of multiple abscesses -: Cholecystectomy -: Tonsillectomy Psychosocial/ Personal History: The patient lives by himself. He is currently single. He has been trying to set up going and living in a skilled nursing. - Family History Father -: Heart disease, Diabetes, Kidney disease Notes: of an OK Mother -: Diabetes Notes: in a car accident - Social History Smoking Status: Never smoker Alcohol use: No CD- Drugs: No Caffeine use: Yes Place of Residence: Home Review of Systems 10-point ROS is otherwise unremarkable Physical Examination - Physical Exam General: Alert, In no apparent distress HEENT: Atraumatic, PERRLA, Mucous membr. moist/pink, EOMI, Sclerae nonicteric Neck: Supple, 2+ carotid pulse no bruit, No LAD, Without JVD or thyroid abnormality Respiratory: Clear to auscultation bilaterally, Normal air movement Cardiovascular: Normal S1 S2, Irregular heart rate/rhythm Gastrointestinal: Normal bowel sounds, No tenderness Musculoskeletal: No tenderness Integumentary: No rashes Neurological: Normal speech, Normal tone, Normal affect, Abnormal gait (He is mostly bed-bound) Lymphatics: No axilla or inguinal lymphadenopathy - Studies Laboratory Data (last 24 hrs) 06/05/18 17:46: PT 14.8 H, INR 1.25, APTT 38.9 H 06/05/18 17:46: WBC 7.1, Hgb 10.1 L, Hct 31.2 L, Plt Count 185 06/05/18 17:46: Sodium 140, Potassium 4.1, BUN 30 H, Creatinine 4.60 H, Glucose 99, Total Bilirubin 0.4, AST 15, ALT 14, Alkaline Phosphatase 208 H, Troponin I < 0.02, Lipase 30 L Assessment and Plan - Problems (Diagnosis) (1) Weakness Current Visit: No Status: Acute (2) Diabetes Onset Date: 09/12/17 Current Visit: No Status: Chronic Qualifiers: Diabetes mellitus type: type 2 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: with 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 use Diabetes mellitus complication status: with circulatory complication Diabetes mellitus complication detail: with other circulatory complications Qualified Code(s): E11.59 - Type 2 diabetes mellitus with other circulatory complications; Z79.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 This is possible secondary to new medication started (gabapentin). Also consider UTI as part of the etiology of his symptoms. Will start empiric antibiotic treatment, consult PT, consult health care marketing specialist to follow up his HD orders while he is hospitalized. - Advance Directives Does patient have a Living Will: No Does patient have a Durable POA for Healthcare: No - Code Status/Comfort Care Code Status Assessed: Yes Code Status: Full Code
[2018-06-05] MEDS: INSULIN -REGULAR HUMAN 50 UNIT/0.5 ML ML SQ SCH (21:08)
[2018-06-06] MEDS ORDERED: HYDRALAZINE HCL 20 MG/ML VIAL IV ONE (00:44)
[2018-06-06] MEDS: ONDANSETRON 4 MG/2 ML VIAL IV PRN ×2 (04:39→21:02)
[2018-06-06 06:36] LABS: Potassium 3.9 mmol/L (3.5-5.1)
[2018-06-06 07:07] LABS: Absolute Lymphocytes (CBC) 0.6 K/uL (0.7-4.9); Absolute Monocytes 0.5 K/uL (0.1-1.3); Absolute Neutrophil 5.4 K/uL (1.8-8.0); Basophils % 0.8 % (0-1.3); Eosinophils % 1.5 % (0-4.4); Hematocrit 33.8 % (39.6-49.0); Lymphocytes % 9.6 % (15.3-44.8); MCH 26.4 pg (27.0-35.0); MCV 81.5 fL (80-100); MPV 7.8 fL (7.6-11.3); Monocytes % 6.9 % (3.3-12.3); RBC Red Blood Cell Count 4.14 M/uL (4.33-5.43)
[2018-06-06] MEDS: INSULIN -REGULAR HUMAN 50 UNIT/0.5 ML ML SQ SCH ×4 (07:30→21:00)
--- NOTE | 2018-06-06 10:57 | EKG ---
Test Date: 2018-06-05 Test Time: 17:18:00 Test Clerk: BRAD MEASUREMENT RESULTS: Intervals: Rate: 54 [place]: 160 QRSD: 96 QT: 490 QTc: 464 [place]: P: 41 [place]: 160 QRS: 40 T: 57 INTERPRETIVE STATEMENTS: Sinus bradycardia Nonspecific ST and T wave abnormality Prolonged QT Abnormal ECG Compared to ECG 12/25/2017 10:55:07 ST (T wave) deviation now present Sinus rhythm no longer present T-wave abnormality no longer present Possible ischemia no longer present Electronically Signed On 06-06-18 10:55:34 CDT by Bakari Sahu
[2018-06-06] MEDS ORDERED: DIPHENOX/ATROP SULF 1 TAB PO PRN (12:14)
[2018-06-06] MEDS ORDERED: LORAZEPAM 0.5 MG TABLET PO PRN (12:14)
[2018-06-06] MEDS ORDERED: MAGNESIUM HYDROXIDE 8% 30 ML PO PRN (12:14)
[2018-06-06] MEDS ORDERED: PROMETHAZINE 25 MG TABLET PO PRN (12:14)
--- NOTE | 2018-06-06 12:14 | P.PN ---
Subjective Date of Service: 06/06/18 Chief Complaint: Generalize weakness Patient was admitted with 3-4 day history of progressive weakness no change is currently having dialysis Review of Systems Unremarkable General: Weakness Physical Examination - Vital Signs Temperature: 97.5 F Blood Pressure: 175/74 Pulse: 55 Respirations: 17 Pulse Ox (%): 100 - Physical Exam General: Alert, Oriented x3 Neck: Supple Respiratory: Clear to auscultation bilaterally Cardiovascular: No edema, Normal pulses, Regular rate/rhythm Gastrointestinal: Normal bowel sounds, Soft and benign - Studies Laboratory Data (last 24 hrs) 06/05/18 17:46: PT 14.8 H, INR 1.25, APTT 38.9 H 06/05/18 17:46: WBC 7.1, Hgb 10.1 L, Hct 31.2 L, Plt Count 185 06/05/18 17:46: Sodium 140, Potassium 4.1, BUN 30 H, Creatinine 4.60 H, Glucose 99, Total Bilirubin 0.4, AST 15, ALT 14, Alkaline Phosphatase 208 H, Troponin I < 0.02, Lipase 30 L Assessment & Plan - Problems (Diagnosis) (1) Weakness Current Visit: Yes Status: Acute Plan: Patient is 53 years of age with end-stage renal disease on dialysis admitted with progressive weakness is currently undergoing dialysis blood pressure is mildly elevated possible sepsis blood cultures have been ordered chest x-ray shows possible volume overload patient did get a dose of cefepime and vancomycin
[2018-06-06] MEDS: CEFTRIAXONE/SWI 1gm 1 GM/10 ML SYR IV SCH (13:00)
[2018-06-06] MEDS: SEVELAMER CARBONATE 800 MG TABLET PO SCH ×2 (13:00→17:15)
[2018-06-06] MEDS ORDERED: cloNIDine HCl 0.1 MG TAB PO SCH (14:00)
[2018-06-06] MEDS: cloNIDine HCl 0.1 MG TAB PO SCH ×2 (14:00→21:50)
[2018-06-06] MEDS ORDERED: LORAZEPAM 0.5 MG TABLET PO SCH (21:00)
[2018-06-06] MEDS ORDERED: ATORVASTATIN 10 MG TAB PO SCH (21:00)
[2018-06-06] MEDS ORDERED: TEMAZEPAM 7.5 MG PO SCH (21:00)
[2018-06-06] MEDS ORDERED: RAMIPRIL 5 MG CAP PO SCH (21:00)
[2018-06-06] MEDS ORDERED: METOPROLOL TAR 50 MG TAB PO SCH (21:00)
[2018-06-06] MEDS ORDERED: GABAPENTIN 100 MG CAP PO SCH (21:00)
[2018-06-06] MEDS: ASCORBIC ACID 500 MG TABLET PO SCH (21:48)
[2018-06-06] MEDS: DOCUSATE NA 100 MG CAP PO SCH (21:48)
[2018-06-06] MEDS: METOPROLOL TAR 50 MG TAB PO SCH (21:49)
[2018-06-06] MEDS ORDERED: HYDRALAZINE HCL 20 MG/ML VIAL IV PRN (23:28)
--- NOTE | 2018-06-06 23:28 | CON ---
Date of Consultation: 06/06/2018 Requesting Provider: Dr. Armond Blake. Reasons For Consultation: End-stage renal disease. History Of Present Illness: Mr. Izquierdo is a 53-year-old male with history of end-stage renal diseas e, who presented to the hospital with fatigue. The patient was found to have severe bradycardia and the patient was brought in by ambulance, and since that time, the patient has been admitted for rozina p. The patient is a dialysis patient, who dialyzes on Friday, , Friday schedule here at [facility], [place], operated by [facility] and when I had seen the patient, he had just completed his dialysis wh ich he was able to tolerate well. At this time, he states that his fatigue is improved, but is still somewhat present. He denies any fevers, chills, chest pain, shortness of breath, nausea, vomiting, or diarrhea. Past Medical History: Significant for hypertension, stress, depression, diabetes, anxiety, end-stage renal disease, osteomyelitis, obesity, chronic back pain. Past Surgical History: Includes amputations, abscess I and D's, cholecystectomy, and tonsillectomy. Family History: Heart disease, diabetes, kidney disease. Physical Examination: Vital Signs: Blood pressure is 174/74, pulse 63, afebrile. General: No acute distress. Heart: Regular rhythm. No murmurs, rubs, gallops. Lungs: Clear to auscultation bilaterally. Abdomen: Soft, nontender, nondistended. Positive bowel sounds x4. Extremities: No significant edema. Laboratory Data: CBC reviewed, stable. Serum chemistry; sodium 138, potassium 3.9, chloride 101, CO 2 28, BUN 39, creatinine 5.1, glucose 122, calcium 8.8. Calcitonin was elevated at 0.66. UA 1+ keto ne, 2+, blood, 1+ leukocyte esterase, rbc's. The patient's wbc's and bacteria, and 3+ protein. Micr obiology data is pending. Both blood cultures and urine cultures are pending. Current Medications: The patient on ceftriaxone 1 g IV daily. The remainder medications were review ed. Impression: 1.End-stage renal disease, on hemodialysis. 2.Bradycardia. 3.Fatigue. 4.Urinary tract infection. 5.Uncontrolled hypertension. Plan: Mr. Izquierdo completed dialysis today and tolerated well. We will continue the patient on , , Friday schedule. Hypertension is uncontrolled. I have increased the clonidine to 0 .2 mg 3 times daily. The patient also has bradycardia and thus his metoprolol dose has been decrease d to 50 mg twice a day. Continue antibiotics for urinary tract infection. Ensure the patient is on renal diet, and we will continue to follow. /ELIZA Voice ID: [id number] Report ID: [id number]
[2018-06-07 05:57] LABS: Hematocrit 29.3 % (39.6-49.0); MCH 27.1 pg (27.0-35.0); MCV 82.2 fL (80-100); MPV 8.1 fL (7.6-11.3); RBC Red Blood Cell Count 3.56 M/uL (4.33-5.43)
[2018-06-07 06:03] LABS: Potassium 3.6 mmol/L (3.5-5.1)
[2018-06-07] MEDS: INSULIN -REGULAR HUMAN 50 UNIT/0.5 ML ML SQ SCH ×2 (07:30→11:30)
[2018-06-07 07:36] VITALS: BMI 23.4
[2018-06-07] MEDS: CEFTRIAXONE/SWI 1gm 1 GM/10 ML SYR IV SCH (08:38)
[2018-06-07] MEDS: ASCORBIC ACID 500 MG TABLET PO SCH (08:42)
[2018-06-07] MEDS: DOCUSATE NA 100 MG CAP PO SCH (08:43)
[2018-06-07] MEDS: SEVELAMER CARBONATE 800 MG TABLET PO SCH ×2 (08:43→12:30)
[2018-06-07] MEDS: cloNIDine HCl 0.1 MG TAB PO SCH ×2 (08:44→14:23)
[2018-06-07] MEDS: METOPROLOL TAR 50 MG TAB PO SCH (08:45)
[2018-06-07] MEDS ORDERED: ZINC SULFATE 220 MG CAP PO SCH (09:00)
[2018-06-07] MEDS ORDERED: PENTOXIFYLLINE ER 400 MG TAB PO SCH (09:00)
[2018-06-07] MEDS ORDERED: CEFTRIAXONE 1 GM/NS 50 ML 1 GM/50 ML BAG IV SCH (09:00)
[2018-06-07] MEDS ORDERED: FUROSEMIDE 40 MG TABLET PO SCH (09:00)
[2018-06-07] MEDS ORDERED: CITALOPRAM 10 MG TABLET PO SCH (09:00)
[2018-06-07] MEDS ORDERED: AMLODIPINE 10 MG TAB PO SCH (09:00)
[2018-06-07 09:01] VITALS: O2SAT 98
--- NOTE | 2018-06-07 10:23 | P.DS ---
Admission Date: 06/05/18 Discharge Date: 06/07/18 Disposition: ROUTINE DISCHARGE Discharge Condition: FAIR Reason for Admission: Generalize weakness - Problems (1) Weakness Current Visit: Yes Status: Acute Brief History of Present Illness: Patient is 53 years of age with end-stage renal disease admitted with weakness seen by Nephrology Hospital Course: No evidence of sepsis cultures all negative seen by Nephrology this stay that the pieces baseline would pressure is slightly elevated patient is not ambulate an element of depression mildly anemic discharge check room air pulse ox Patient has oxygen in the detention Vital Signs/Physical Exam: Temp Pulse Resp BP Pulse Ox 98.1 F 57 16 178/78 H 99 06/07/18 04:00 06/07/18 08:45 06/07/18 04:00 06/07/18 08:45 06/07/18 04:00 Laboratory Data at Discharge: WBC 7.6 K/uL (4.3-10.9) D 06/07/18 04:46 Hgb 9.6 g/dL (13.6-17.9) L 06/07/18 04:46 Hct 29.3 % (39.6-49.0) L 06/07/18 04:46 Plt Count 187 K/uL (152-406) 06/07/18 04:46 PT 14.8 SECONDS (9.5-12.5) H 06/05/18 17:46 INR 1.25 06/05/18 17:46 APTT 38.9 SECONDS (24.3-36.9) H 06/05/18 17:46 Sodium 140 mmol/L (136-145) 06/07/18 04:46 Potassium 3.6 mmol/L (3.5-5.1) 06/07/18 04:46 BUN 26 mg/dL (7-18) H 06/07/18 04:46 Creatinine 4.10 mg/dL (0.55-1.3) H D 06/07/18 04:46 Glucose 108 mg/dL (74-106) H 06/07/18 04:46 Total Bilirubin 0.4 mg/dL (0.2-1.0) 06/05/18 17:46 AST 15 U/L (15-37) 06/05/18 17:46 ALT 14 U/L (12-78) 06/05/18 17:46 Alkaline Phosphatase 208 U/L (45-117) H 06/05/18 17:46 Troponin I < 0.02 ng/mL (0.0-0.045) 06/05/18 17:46 Lipase 30 U/L (73-393) L 06/05/18 17:46 Home Medications: Metoprolol Tartrate [Lopressor] 100 mg PO BID 03/27/16 Furosemide [Lasix*] 80 mg PO DAILY 09/11/17 LORazepam [Ativan*] 0.5 mg PO BEDTIME 09/11/17 Pentoxifylline 400 mg PO DAILY 09/11/17 Sevelamer Carbonate [Renvela*] 800 mg PO TID 09/11/17 cloNIDine HCl [Catapres*] 0.1 mg PO TID 09/11/17 Acetaminophen 500 mg PO Q6HP PRN 12/25/17 Amlodipine [Norvasc*] 10 mg PO DAILY 12/25/17 Atorvastatin Calcium [Lipitor*] 10 mg PO BEDTIME 12/25/17 Benzonatate [Tessalon Perle*] 1 cap PO Q6HP PRN 12/25/17 Citalopram [Celexa*] 10 mg PO DAILY 12/25/17 Diphenox/Atropine [Lomotil*] 1 tab PO Q8HP PRN 12/25/17 Docusate Sodium 1 cap PO BID 12/25/17 Hydrocodone 7.5/APAP 325 [[place] 7.5/325 mg*] 1 tab PO TID 12/25/17 Insulin Aspart [Novolog Flexpen] See Protocol SQ DAILY 12/25/17 Ipratropium/Albuterol Sulfate [Iprat-Albut 0.5-3(2.5) mg/3 ml] 1 vial NEB Q6HP PRN 12/25/17 LORazepam [Ativan*] 1 mg PO T,TH,S 12/25/17 Mag Hydroxide 8% [Milk Of Magnesia*] 30 ml PO DAILYPRN PRN 12/25/17 Promethazine HCl 25 mg PO Q6HP PRN 12/25/17 Ramipril [Altace] 10 mg PO BEDTIME 12/25/17 Ascorbic Acid [Vitamin C*] 500 mg PO BID 06/05/18 Ciclopirox [Penlac] 1 appl TP BEDTIME 06/05/18 Docusate/Senna [Senokot-S] 2 tab PO BID 06/05/18 Gabapentin [Neurontin*] 100 mg PO BEDTIME 06/05/18 LORazepam [Ativan*] 0.5 mg PO DAILYPRN PRN 06/05/18 Psyllium [Metamucil] 1 pkt PO DAILY 06/05/18 Temazepam [Restoril] 7.5 mg PO BEDTIME 06/05/18 Zinc Sulfate [Zinc Sulfate*] 220 mg PO DAILY 06/05/18 Diet: Low sodium Activity: Ad jason
[2018-06-07 13:32] VITALS: TEMP 97.7
[2018-06-07 14:26] VITALS: BP 157/69
--- NOTE | 2018-06-07 16:26 | PN ---
Date of Progress Note: 06/07/2018 Subjective: The patient seen at bedside. No overnight events reported. The patient still feels fat igued. He denies any fevers, chills, chest pain, shortness of breath, nausea, vomiting, or diarrhea. Objective: Vital Signs: Blood pressure 178/78, pulse is 57. General: No acute distress. Heart: Regular rate and rhythm. No murmurs or gallops. Lungs: Mild crepitations at the bases. Abdomen: Soft, nontender, nondistended. Positive bowel sounds x4. Extremities: No significant edema. Laboratory Data: CBC reviewed and stable serum chemistry. Sodium 140, potassium 3.6, chloride 101, CO2 of 32, BUN 26, creatinine 4.1, glucose 108, and calcium 9.1. Microbiology data showing over 100, 000 colony-forming units. However, identification is pending. Current Medications: Reviewed. Ceftriaxone 1 g IV daily. The patient's clonidine was increased to 0.2 mg p.o. t.i.d. yesterday. Remainder medications were noted. Impression: 1.End-stage renal disease, on hemodialysis. 2.Bradycardia. 3.Fatigue. 4.Urinary tract infection. 5.Uncontrolled hypertension. Plan: The patient is stable from an electrolyte and volume perspective. Continue antibiotics per pr imary team. The nursing staff here was instructed to ensure that the halfway does follow up cul ture identification and discharge antibiotic to be determined by discharging team. Continue current antihypertensives. Continue the patient on phosphorus binders on discharge and we will continue to follow. /ELIZA Voice ID: [id number] Report ID: [id number]
== END 2018-06-07 15:34 ==
LOC: ER 17:16 → INTOOBSV 19:33 → ERHOLD 19:33 → 2ND 20:38
PROVIDERS: ADMIT Internal Medicine; ATTEND Internal Medicine
DX: N39.0 Urinary tract infection, site not specified (principal); I12.0 Hypertensive chronic kidney disease with stage 5 chronic kidney disease or end stage renal disease; E11.22 Type 2 diabetes mellitus with diabetic chronic kidney disease; F41.8 Other specified anxiety disorders; R00.1 Bradycardia, unspecified; Z99.2 Dependence on renal dialysis; Z79.4 Long term (current) use of insulin
CPT/HCPCS: 36415 ×2; 51702; 70450; 71045; 80048 ×3; 80076; 82553; 82962 ×7; 83605; 83690; 84145; 84484; 85025 ×2; 85027; 85610; 85730; 87040 ×2; 87086; 87088; 90935; 93005; 96365; 96367; 97163; 99285; G0378 ×2; J0360 ×2; J0692; J0696 ×2; J2405 ×2; J3370; 81003; 81015

== ENCOUNTER 2018-06-28 11:15 | Emergency (ER) | payer OTHER ==
--- OUTSIDE RECORDS SUMMARY | 2018-06-28 11:18 | XMS REPORT | Clinical Summary ---
:1965 Author Organization [facility] Address [address] [place] [id number] Care Team Providers Name Role Phone Eduardo [...] INFLUENZA VACCINE 04/15/2018 Implants Implanted Type Area Cath Lab Technologist Device Expiration Model / Identifier Date Serial / Lot Clip Ligtng Weck Hemoclip Plus W/ Tape Ti Med - [id number] Medical N/A: N/A TELEFLEX MEDICAL [id number] / Implanted: 02/28/2016 (Quantity not on file) Clips for / Internal Use Clip Ligtng Weck Hemoclip Plus W/ Tape Ti - [id number] Medical N/A: N/A WECK CLOSURE [id number] / Implanted: 02/28/2016 (Quantity not on file) Clips for SYSTEMS / Internal Use Results Not on fileafter 06/27/2017 Insurance Payer Benefit Plan / Group Subscriber ID Type Phone Address MEDICARE MEDICARE PART A AND B xxxxxxxxxx Medicare [place], [place] [address]
[2018-06-28] MEDS ORDERED: NA CHLORIDE 0.9% 500 ML ONE (12:12)
[2018-06-28 12:17] LABS: Absolute Lymphocytes (CBC) 0.6 K/uL (0.7-4.9); Absolute Monocytes 0.6 K/uL (0.1-1.3); Absolute Neutrophil 11.5 K/uL (1.8-8.0); Basophils % 0.2 % (0-1.3); Eosinophils % 0.1 % (0-4.4); Hematocrit 33.4 % (39.6-49.0); Lymphocytes % 4.4 % (15.3-44.8); MCH 25.7 pg (27.0-35.0); MCV 81.5 fL (80-100); MPV 7.5 fL (7.6-11.3); RBC Red Blood Cell Count 4.09 M/uL (4.33-5.43)
[2018-06-28 12:32] LABS: ALT/SGPT 10 U/L (12-78); AST/SGOT 12 U/L (15-37); Albumin 2.6 g/dL (3.4-5.0); Alkaline Phosphatase 144 U/L (45-117); BUN Blood Urea Nitrogen 20 mg/dL (7-18); Bicarbonate 33 mmol/L (21-32); Bilirubin Direct 0.3 mg/dL (0-0.2); Bilirubin Total 0.7 mg/dL (0.2-1.0); CKMB Creatine Kinase MB 2.8 ng/mL (0.3-3.6); Creatine Phosphokinase 21 U/L (39-308); Glucose Level 135 mg/dL (74-106); Lipase 42 U/L (73-393); Potassium 3.2 mmol/L (3.5-5.1); Protein, Total 8.1 g/dL (6.4-8.2); Sodium Level 140 mmol/L (136-145); Troponin (Emerg Dept Use Only) < 0.02 ng/mL (0.0-0.045)
[2018-06-28 12:36] LABS: Protime INR 1.18
[2018-06-28 12:48] LABS: Arterial Blood Carboxyhemoglob 2.3 % (0-1.5); Blood Gas Oxyhemoglobin 90.1 % (94-97)
--- NOTE | 2018-06-28 13:23 | RAD REPORT ---
EXAM DESCRIPTION: RAD - Chest Single View - 06/28/2018 12:41 pm CLINICAL HISTORY: COPD Chest pain. COMPARISON: Chest Single View dated 06/05/2018; Chest Single View dated 12/25/2017; Chest Single View dated 09/13/2017; Chest Single View dated 09/12/2017 FINDINGS: Portable technique limits examination quality. Marked bilateral pulmonary opacities are present, greater on the right with probable pleural effusion s. The findings likely related to a significant volume overload or pulmonary edema. Cardiac size is d ifficult to assess. No displaced fractures.
[2018-06-28] MEDS ORDERED: AMLODIPINE 5 MG TAB ONE (13:33)
[2018-06-28] MEDS ORDERED: METOPROLOL TAR 50 MG TAB ONE (13:33)
[2018-06-28] MEDS ORDERED: LABETALOL 20 MG/4ML SYRINGE IV ONE (13:36)
--- NOTE | 2018-06-28 13:48 | EDPHYS ---
Physician Documentation [facility] Name: Ari Izquierdo Age: 53 yrs Sex: Male : 1965 Arrival Date: 06/28/2018 Time: 11:20 Bed 19 Private MD: ED Physician Luis Alfredo Garcia HPI: 06/28 13:07 This 53 yrs old Male presents to ER via EMS with complaints of Breathing ma2 Difficulty. 13:07 The patient has shortness of breath at rest. Onset: The symptoms/episode began/occurred ma2 gradually, 1 week(s) ago. Duration: The symptoms are continuous. Associated signs and symptoms: Pertinent positives: Pertinent negatives: non-productive cough, productive cough, dizziness, hemoptysis, numbness in extremities, visual changes, vomiting. Severity of symptoms: At their worst the symptoms were moderate in the emergency department the symptoms are unchanged. ESRD her with tachypnea x 1 week has lower back sacral pain no other symptoms . Historical: - Allergies: 11:43 Morphine; aj - Home Meds: 11:43 amlodipine 10 mg tab 1 tab twice a day [Active]; atorvastatin 10 mg Oral tab 1 tab once aj daily [Active]; citalopram 20 mg tab 1 tab once daily [Active]; clonidine HCl 0.1 mg Oral tab 1 tab 3 times per day [Active]; ferrous sulfate 325 mg (65 mg iron) Oral tab 1 tab twice a day [Active]; lorazepam 0.5 mg Oral tab daily [Active]; metoprolol tartrate 100 mg Oral tab 1 tab 2 times per day [Active]; [place] 5-325 mg Oral tab 1 tab every 6 hours [Active]; ramipril 10 mg Oral cap 1 cap once daily [Active]; Renvela 800 mg Oral tab 1 tab 3 times per day [Active]; terazosin 5 mg Oral cap 1 cap twice a day [Active]; Tresiba FlexTouch U-200 200 unit/mL (3 mL) subcutaneous inpn 120 unit daily [Active]; - PMHx: 11:43 Anemia; CHF; Depression; Diabetes - IDDM; ESRD; Hypertension; psoriasis; TIA; aj - PSHx: 11:43 Fistula RUE; Toe amputations bilaterally; aj - Immunization history:: Adult Immunizations up to date. - Social history:: Smoking status: Patient/guardian denies using tobacco, Patient/guardian denies using alcohol, street drugs, The patient lives with family. - Ebola Screening: : Patient negative for fever greater than or equal to 101.5 degrees Fahrenheit, and additional compatible Ebola Virus Disease symptoms Patient denies exposure to infectious person Patient denies travel to an Ebola-affected area in the 21 days before illness onset No symptoms or risks identified at this time. - Family history:: not pertinent. - Hospitalizations: : No recent hospitalization is reported. ROS: 13:07 Eyes: Negative for injury, pain, redness, and discharge, ENT: Negative for injury, ma2 pain, and discharge, Cardiovascular: Negative for chest pain, palpitations, and edema, Abdomen/GI: Negative for abdominal pain, nausea, diarrhea, and constipation, MS/Extremity: Negative for injury and deformity, Neuro: Negative for headache, weakness, numbness, tingling, and seizure. 13:07 Constitutional: Positive for body aches, poor PO intake, Negative for weight loss. 13:07 Back: Positive for lower back pain, Negative for injury or acute deformity. 13:07 Skin: Positive for 13:07 All other systems are negative. Exam: 13:07 Eyes: Pupils equal round and reactive to light, extra-ocular motions intact. Lids and ma2 lashes normal. Conjunctiva and sclera are non-icteric and not injected. Cornea within normal limits. Periorbital areas with no swelling, redness, or edema. ENT: Nares patent. No nasal discharge, no septal abnormalities noted. Tympanic membranes are normal and external auditory canals are clear. Oropharynx with no redness, swelling, or masses, exudates, or evidence of obstruction, uvula midline. Mucous membranes moist. Neck: Trachea midline, no thyromegaly or masses palpated, and no cervical lymphadenopathy. Supple, full range of motion without nuchal rigidity, or vertebral point tenderness. No Meningismus. Chest/axilla: Normal chest wall appearance and motion. Nontender with no deformity. No lesions are appreciated. Cardiovascular: Regular rate and rhythm with a normal S1 and S2. No gallops, murmurs, or rubs. Normal PMI, no JVD. No pulse deficits. Abdomen/GI: Soft, non-tender, with normal bowel sounds. No distension or tympany. No guarding or rebound. No evidence of tenderness throughout. 13:07 MS/ Extremity: Pulses equal, no cyanosis. Neurovascular intact. Full, normal range of motion. Neuro: Awake and alert, GCS 15, oriented to person, place, time, and situation. Cranial nerves II-XII grossly intact. Motor strength 5/5 in all extremities. Sensory grossly intact. Cerebellar exam normal. Normal gait. 13:07 Constitutional: The patient appears lethargic, in obvious distress, severely distressed, restless. 13:07 Respiratory: moderate respiratory distress is noted, Respirations: Breath sounds: no acute changes, Respiratory rate: 25 13:07 Back: pain, that is moderate, vertebral tenderness, is appreciated at L4, L5 and [facility]rum[facility] Vital Signs: 11:44 BP 201 / 103; Pulse 76; Resp 34; Temp 96.6; Pulse Ox 100% 4 lpm ; Weight 49.9 kg; aj Height 5 ft. 5 in. (165.10 cm); 12:26 BP 210 / 107; Pulse 74; Resp 25; Pulse Ox 96% on 4 lpm NC; aj 12:48 BP 209 / 64; Pulse 73; Resp 23; Pulse Ox 99% on 4 lpm NC; aj 13:05 BP 205 / 93; Pulse 73; Resp 25; Temp 97.3(TE); Pulse Ox 100% on 8% Simple Mask; aj 13:18 BP 228 / 70; Pulse 74; Resp 29; Pulse Ox 100% on 8% Simple Mask; aj 13:52 BP 179 / 65; Pulse 67; Resp 23; Pulse Ox 100% on 8% Simple Mask; aj 14:48 BP 201 / 89; Pulse 66; Resp 21; Pulse Ox 100% on 8% Simple Mask; aj 15:47 BP 199 / 61; Pulse 67; Resp 19; Temp 98.2; Pulse Ox 100% on 8% Simple Mask; aj 11:44 Body Mass Index 18.30 (49.90 kg, 165.10 cm) aj MDM: 11:40 Patient medically screened. nh2 13:07 Differential diagnosis: Anemia Bronchitis pneumonia, reactive airway disease, Sepsis. nh2 Antibiotic administration: 13:46 Data reviewed: vital signs, nurses notes. Counseling: I had a detailed discussion with [facility] the patient and/or guardian regarding: the historical points, exam findings, and any diagnostic results supporting the discharge/admit diagnosis, the presence of at least one elevated blood pressure reading (>120/80) during this emergency department visit, the need for outpatient follow up. Response to treatment: the patient's symptoms have mildly improved after treatment. 13:46 ED course: patient need ICU admission for possible pneumonia has tachypnea . nh2 13:58 ED course: no ICU bed available at this time or anticipated in the next 12 hrs . nh2 06/28 11:52 Order name: Basic Metabolic Panel; Complete Time: 13:06/28 11:52 Order name: Blood Culture Adult (2) 06/28 11:52 Order name: CBC with Diff 06/28 11:52 Order name: Ckmb; Complete Time: 13:06/28 11:52 Order name: CPK; Complete Time: 13:06/28 11:52 Order name: Lactate; Complete Time: 13:06/28 11:52 Order name: LFT's; Complete Time: 13:06/28 11:52 Order name: Lipase; Complete Time: 13:06/28 11:52 Order name: Procalcitonin; Complete Time: 13:06/28 11:52 Order name: Protime (+inr); Complete Time: 13:06/28 11:52 Order name: Ptt, Activated; Complete Time: 13:06/28 11:52 Order name: Troponin (emerg Dept Use Only); Complete Time: 13:06/28 12:30 Order name: CBC Smear Scan [facility] 06/28 11:52 Order name: Chest Single View XRAY; Complete Time: 13:25 06/28 11:52 Order name: Accucheck; Complete Time: 12:07 06/28 11:52 Order name: Cardiac monitoring; Complete Time: 11:53 06/28 11:52 Order name: EKG - Nurse/Tech; Complete Time: 12:58 06/28 11:52 Order name: IV Saline Lock - Large Bore; Complete Time: 11:53 06/28 11:52 Order name: Labs collected and sent; Complete Time: 11:53 06/28 11:52 Order name: O2 Per Protocol; Complete Time: 11:54 06/28 11:52 Order name: O2 Sat Monitoring; Complete Time: 11:54 06/28 12:31 Order name: BELLA; Complete Time: 13:06 ma2 Administered Medications: 12:07 Drug: NS 0.9% (30 ml/kg) 500 ml Route: IV; Rate: bolus; Site: left forearm; la1 15:52 Follow up: IV Status: Order to discontinue infusion; IV Intake: 500ml aj 15:52 Follow up: Provider ordered 500ml bolus R/T patient being dialysis and CHF, not to give aj 30 ml/kg 13:30 Drug: Labetalol 20 mg Route: IVP; Infused Over: 2 mins; Site: left forearm; aj 14:36 Follow up: Response: Blood pressure is lowered aj 13:34 CANCELLED (patient unable to swallow): Lopressor 100 mg PO once aj 13:34 CANCELLED (patient unable to swallow): Norvasc 5 mg PO once aj 14:36 Drug: Cefepime 1 grams Route: IVPB; Rate: 200 ml/hr; Infused Over: 30 mins; Site: left aj forearm; 15:06 Follow up: Response: No adverse reaction; IV Status: Completed infusion; IV Intake: aj 100ml 15:07 Drug: vancoMYCIN 1 grams Route: IVPB; Infused Over: 2 hrs; Site: left forearm; aj 15:52 Follow up: Response: No adverse reaction; IV Status: Infusion continued upon transfer; IV Intake: 100ml Point of Care Testing: Blood Glucose: 12:03 Blood Glucose: 129 mg/dL; Ranges: Critical Glucose Levels:Adult <50 mg/dl or >400 mg/dl <40 mg/dl or >180 mg/dl Disposition: 06/28/18 13:[address] [facility]. Diagnosis is Pneumonia in diseases classified elsewhere. - Reason for transfer: Higher level of care. - Accepting physician is Dr. Lobato. - Condition is Stable. - Problem is new. - Symptoms have worsened. Signatures: Dispatcher [employer] Juliane Hernandez RN RN aj Attema, Lee, RN RN la1 Luis Alfredo Garcia MD MD ma2 Corrections: (The following items were deleted from the chart) 11:54 11:52 Urine Dipstick-Ancillary ordered. aj aj 13:34 13:23 Lopressor 100 mg PO once ordered. ma2 aj 13:34 13:23 Norvasc 5 mg PO once ordered. ma2 aj 13:58 13:48 06/28/2018 13:[address] [facility]. Diagnosis is ma2 Pneumonia in diseases classified elsewhere. Reason for transfer: Higher level of care. Accepting physician is tony. Condition is Stable. Problem is new. Symptoms have worsened. ma2 15:59 13:58 06/28/2018 13:[address] [facility]. Diagnosis is aj Pneumonia in diseases classified elsewhere. Reason for transfer: Higher level of care. Accepting physician is Dr. Lobato. Condition is Stable. Problem is new. Symptoms have worsened. ma2
--- NOTE | 2018-06-28 13:48 | ER ---
Nurse's Notes [facility] Name: Ari Izquierdo Age: 53 yrs Sex: Male : 1965 Arrival Date: 06/28/2018 Time: 11:20 Bed 19 Private MD: Diagnosis: Pneumonia in diseases classified elsewhere Presentation: 06/28 11:36 Presenting complaint: EMS states: [facility] for patient having difficulty aj breathing and decreased appetite for a week. Patient received dialysis yesterday. EMS reports that patient's mentation is WNL for patient. Redness noted to bilateral hands with significant swelling noted to right hand. Denies fever. Patient is tachypneic with labored respirations. Transition of care: patient was not received from another setting of care. Onset of symptoms was June 28, 2018. Risk Assessment: Do you want to hurt yourself or someone else? Patient reports no desire to harm self or others. Initial Sepsis Screen: Does the patient meet any 2 criteria? RR > 20 per min. Temp <36.0*C (96.8*F)) or > 38.3*C (100.9*F). Yes Does the patient have a suspected source of infection? No. Patient's initial sepsis screen is negative. Care prior to arrival: Provided with O2 at 4 liters NC, which patient is on constantly at home. 11:36 Method Of Arrival: EMS: [facility] 11:36 Acuity: RACHANA 2 aj Triage Assessment: 11:44 General: Appears in no apparent distress. uncomfortable, slender, unkempt, emaciated, aj Behavior is calm. Pain: Complains of pain in coccyx. Neuro: Level of Consciousness is awake, alert, obeys commands, lethargic, Oriented to person, place, situation, Speech is normal, Facial symmetry appears normal. Respiratory: Reports shortness of breath Airway is patent Respiratory effort is labored, with retractions, Respiratory pattern is tachypnea Onset: The symptoms/episode began/occurred at an unknown time. the patient has moderate shortness of breath. Derm: Skin is intact, is fragile, Skin is dry, Skin is normal, Skin temperature is cool Wound noted coccyx Wound is stage 1 pressure ulcer redness to bilateral hands with swelling to right hand. Historical: - Allergies: 11:43 Morphine; aj - Home Meds: 11:43 amlodipine 10 mg tab 1 tab twice a day [Active]; atorvastatin 10 mg Oral tab 1 tab once aj daily [Active]; citalopram 20 mg tab 1 tab once daily [Active]; clonidine HCl 0.1 mg Oral tab 1 tab 3 times per day [Active]; ferrous sulfate 325 mg (65 mg iron) Oral tab 1 tab twice a day [Active]; lorazepam 0.5 mg Oral tab daily [Active]; metoprolol tartrate 100 mg Oral tab 1 tab 2 times per day [Active]; [place] 5-325 mg Oral tab 1 tab every 6 hours [Active]; ramipril 10 mg Oral cap 1 cap once daily [Active]; Renvela 800 mg Oral tab 1 tab 3 times per day [Active]; terazosin 5 mg Oral cap 1 cap twice a day [Active]; Tresiba FlexTouch U-200 200 unit/mL (3 mL) subcutaneous inpn 120 unit daily [Active]; - PMHx: 11:43 Anemia; CHF; Depression; Diabetes - IDDM; ESRD; Hypertension; psoriasis; TIA; aj - PSHx: 11:43 Fistula RUE; Toe amputations bilaterally; aj - Immunization history:: Adult Immunizations up to date. - Social history:: Smoking status: Patient/guardian denies using tobacco, Patient/guardian denies using alcohol, street drugs, The patient lives with family. - Ebola Screening: : Patient negative for fever greater than or equal to 101.5 degrees Fahrenheit, and additional compatible Ebola Virus Disease symptoms Patient denies exposure to infectious person Patient denies travel to an Ebola-affected area in the 21 days before illness onset No symptoms or risks identified at this time. - Family history:: not pertinent. - Hospitalizations: : No recent hospitalization is reported. Screenin:50 Abuse screen: Denies threats or abuse. Denies injuries from another. Nutritional aj screening: Intervention for positive screen: ED Physician notified, anorexia reported by jail. Tuberculosis screening: No symptoms or risk factors identified. Fall Risk None identified. 13:36 Patient has been NPO before screening. The patient is alert, able to follow commands. aj The patient does not exhibit slurred or garbled speech The patient is not exhibiting difficulty speaking. The patient does not exhibit difficulty understanding words. The patient is able to swallow own secretions with no drooling or need for suction. The patient did not tolerate one teaspoon of water. Drooling, immediate coughing, gurgling, or clearing of the throat was noted. Bedside swallow screening discontinued. Patient kept NPO until cleared by Speech Therapy or Physician. The patient failed the bedside swallow screening. The patient will be kept NPO until cleared by Speech Therapy or Physician. Assessment: 11:50 Reassessment: No changes from previously documented assessment. aj 12:26 Reassessment: Place pillows under patient bilaterally to remove pressure on sacrum. aj Patient reports he is more comfortable. Respirations remain labored and tachypneic. Patient continues to be awake and alert x3. 12:49 Cardiovascular: Dialysis shunt: in the right bicep, with palpable thrill, with aj auscultated bruit. 13:04 Reassessment: No changes from previously documented assessment. Patient's respirations aj are tachypneic and labored. Provider notified, ordered oxygen 8 liters via simple mask. 13:12 Reassessment: Contacted sister Savanah Spence (sister) [phone]. Stated "I will be up aj there in a little while:. 13:52 Reassessment: Patient's sister is in room and reports she has Power of Risk Compliance Manager. aj Patient is alert and oriented to person, place, and situation. Patient stated to this nurse that he would not like to be intubated or have CPR in the event of cardiac arrest. Patient's sister reported that she believes patient has a DNR but does not have the paperwork. I asked the patient's sister to attempt to obtain a copy of the DNR for our records. Provider notified and will speak to patient and family. 15:47 Reassessment: No changes from previously documented assessment. Sister is at bedside. aj Vital Signs: 11:44 BP 201 / 103; Pulse 76; Resp 34; Temp 96.6; Pulse Ox 100% 4 lpm ; Weight 49.9 kg; aj Height 5 ft. 5 in. (165.10 cm); 12:26 BP 210 / 107; Pulse 74; Resp 25; Pulse Ox 96% on 4 lpm NC; aj 12:48 BP 209 / 64; Pulse 73; Resp 23; Pulse Ox 99% on 4 lpm NC; aj 13:05 BP 205 / 93; Pulse 73; Resp 25; Temp 97.3(TE); Pulse Ox 100% on 8% Simple Mask; aj 13:18 BP 228 / 70; Pulse 74; Resp 29; Pulse Ox 100% on 8% Simple Mask; aj 13:52 BP 179 / 65; Pulse 67; Resp 23; Pulse Ox 100% on 8% Simple Mask; aj 14:48 BP 201 / 89; Pulse 66; Resp 21; Pulse Ox 100% on 8% Simple Mask; aj 15:47 BP 199 / 61; Pulse 67; Resp 19; Temp 98.2; Pulse Ox 100% on 8% Simple Mask; aj 11:44 Body Mass Index 18.30 (49.90 kg, 165.10 cm) aj ED Course: 11:20 Patient arrived in ED. aj 11:36 Juliane Castro, RN is Primary Nurse. aj 11:39 Triage completed. aj 11:40 Luis Alfredo Garcia MD is Attending Physician. ma2 11:44 Arm band placed on right wrist. Patient placed in an exam room, on a stretcher, on aj oxygen, on potline monitor, on pulse oximetry. 11:50 Patient has correct armband on for positive identification. Placed in gown. Bed in low aj position. Call light in reach. Side rails up X2. cardiac monitor on. Pulse ox on. NIBP on. 11:50 Inserted saline lock: 22 gauge in left forearm, using aseptic technique. Blood aj collected. 12:42 Chest Single View XRAY In Process Unspecified. EDMS 13:01 EKG done, by ED staff, reviewed by Luis Alfredo Garcia MD. 5 13:03 Oxygen administration administration via face mask \\T\\ 8L/min Response to oxygen therapy: aj symptoms remain unchanged. 14:21 Report given to [facility] ICU [address]. aj 15:47 No provider procedures requiring assistance completed. Patient transferred, IV remains aj in place. intact. Administered Medications: 12:07 Drug: NS 0.9% (30 ml/kg) 500 ml Route: IV; Rate: bolus; Site: left forearm; la1 15:52 Follow up: IV Status: Order to discontinue infusion; IV Intake: 500ml aj 15:52 Follow up: Provider ordered 500ml bolus R/T patient being dialysis and CHF, not to give aj 30 ml/kg 13:30 Drug: Labetalol 20 mg Route: IVP; Infused Over: 2 mins; Site: left forearm; aj 14:36 Follow up: Response: Blood pressure is lowered aj 13:34 CANCELLED (patient unable to swallow): Lopressor 100 mg PO once aj 13:34 CANCELLED (patient unable to swallow): Norvasc 5 mg PO once aj 14:36 Drug: Cefepime 1 grams Route: IVPB; Rate: 200 ml/hr; Infused Over: 30 mins; Site: left aj forearm; 15:06 Follow up: Response: No adverse reaction; IV Status: Completed infusion; IV Intake: aj 100ml 15:07 Drug: vancoMYCIN 1 grams Route: IVPB; Infused Over: 2 hrs; Site: left forearm; aj 15:52 Follow up: Response: No adverse reaction; IV Status: Infusion continued upon transfer; aj IV Intake: 100ml Point of Care Testing: Blood Glucose: 12:03 Blood Glucose: 129 mg/dL; aj Ranges: Intake: 15:06 IV: 100ml; Total: 100ml. aj 15:52 IV: 100ml; Total: 200ml. aj 15:52 IV: 500ml; Total: 700ml. aj Outcome: 13:48 ER care complete, transfer ordered by . ma2 15:47 Transferred by ground EMS to [facility], Transfer form completed. aj X-rays sent w/ patient. 15:47 critical 15:47 Discharge instructions given to patient, family, Instructed on the need for transfer, Demonstrated understanding of instructions. 15:59 Patient left the ED. aj Signatures: Dispatcher [employer] Juliane Hernandez RN RN aj Attema, Lee, RN RN la1 Martinez, Maria [facility] Luis Alfredo Garcia MD MD ma2
[2018-06-28 14:22] LABS: Blood Morphology Comment NOT SEEN (NOT SEEN); Platelet Estimate ADEQ; Urine White Blood Cell Casts OK
[2018-06-28] MEDS ORDERED: VANCOMYCIN 0 GM/0 ML BAG ONE (14:31)
[2018-06-28] MEDS ORDERED: CEFEPIME 1 GM/100 ML BAG IV ONE (14:31)
[2018-06-28] MEDS ORDERED: VANCOMYCIN 1 GM/250 ML BAG ONE (14:35)
[2018-06-28 16:08] VITALS: O2SAT 100
[2018-06-28 16:13] VITALS: BP 199/61; TEMP 98.2
--- NOTE | 2018-06-29 10:08 | EKG ---
Test Date: 2018-06-28 Test Time: 12:52:00 Consignee: HARJINDER MEASUREMENT RESULTS: Intervals: Rate: 73 ID: QRSD: [id number] QT: 424 QTc: 467 Ferguson: P: ID: [id number]: [id number] T: -77 INTERPRETIVE STATEMENTS: Sinus rhythm Non specific T abnormality Abnormal ECG Compared to ECG 06/05/2018 17:18:00 Sinus bradycardia no longer present Electronically Signed On 06-29-18 10:07:59 CDT by Andreas Boyce
== END 2018-06-28 15:59 | disposition short-term general hospital (02) ==
LOC: ER 11:15
DX: J18.9 Pneumonia, unspecified organism (principal); E11.22 Type 2 diabetes mellitus with diabetic chronic kidney disease; I12.0 Hypertensive chronic kidney disease with stage 5 chronic kidney disease or end stage renal disease; N18.6 End stage renal disease; I50.9 Heart failure, unspecified; F32.9 Major depressive disorder, single episode, unspecified; Z79.4 Long term (current) use of insulin
CPT/HCPCS: 36415; 71045; 80048; 80076; 82550; 82553; 82805; 82962; 83605; 83690; 84145; 84484; 85025; 85610; 85730; 87040 ×2; 93005; 96365; 96366; 96367; 96375; 99285; J0692; J3370